=== PATIENT | female | born 1955 | race Caucasian/White ===

== ENCOUNTER 2024-11-23 12:42 | Emergency (ER) | payer MEDICARE, OTHER, SELFPAY ==
--- NOTE | ~2024-11-23 | XR_ITS ---
EXAMINATION: XR chest 2V Exam Date/Time: 11/23/2024 15:00 CDT HISTORY: sob Comparison: 04/27/2014. RESULT: Lines, tubes, and devices: None. Lungs and pleura: No lobar consolidation, pleural effusion, or pneumothorax. Minimal subsegmental r ight basilar airspace opacity in the posterior and lateral costophrenic sulci. Cardiomediastinal silhouette: Stable. Other: No acute osseous or upper abdominal finding. IMPRESSION: Subsegmental right basilar atelectasis/consolidation. Reviewed, dictated and finalized at location K.
--- OUTSIDE RECORDS SUMMARY | 2024-11-23 12:45 | XMS_ITS | Clinical Summary ---
Author Organization [facility] Address [address] [place] [id number] Care Team Providers Care Bobbin Inspector Name Role Phone Willem Mccray MD Primary Care Provider Unava ilable Social History Tobacco Use Types Packs/Day Years Used Date Smoking Tobacco: Never Assessed Comments Unknown Sex and Gender Information Value Date Recorded Sex Assigned at Not on file Legal Sex Female 7:18 PM CDT Gender Identity Not on file Sexual Orientation Not on file Plan of Treatment Health Maintenance Due Date Last Done Comments Colorectal Cancer Screening Colonoscopy (10 Years) 1957 Hepatitis C 1975 DTaP, Tdap and Td Vaccines ( 1 - Tdap) 02/28/1976 Mammogram Screening 1997 Zoster Vaccines (1 of 2) 2007 Dexa Scan (General) 2022 Pneumococcal Vaccine: 65+ Ye ars (1 of 1 - PCV) 2022 COVID-19 Vaccine ( - 2023-2 5 season) 2024 Influenza Adult (#1) 2024 RSV Immunization or 60+ Years (1 - 1-dose 75+ series) 02/28/2032 Meningococcal B Vaccine Aged Out No l onger eligible based on patient's age to complete this topic Meningococcal Vaccine Aged Out No brendon bill eligible based on patient's age to complete this topic RSV Immunizations Under 20 Months Aged Out No longer eligible based on patient's age to complete this topic Care Teams Bobbin Inspector Relationship Specialty Start Date End Date Willem Mccray MD PCP - General 01/17/15
--- OUTSIDE RECORDS SUMMARY | 2024-11-23 12:45 | XMS_ITS | Continuity of Care Document ---
Author Name [facility] Organization [facility] Care Team Providers Care Construction Foreman Name Role Phone [facility] Unavailable Unavailable Problems Combined list of problems from Department of Defense and Veterans Affairs facilities. It does not include entries that were removed or entered in error. Problem Status Onset Date Problem Type Date of Resolution Comments Source Tachycardia Active 5 Diagnosis [facility] Obesity Active 5 Diagnosis [facility]- C[facility] Screening for malignant neoplasm of colon done Active 5 Diagnosis 6130C[facility]Af- C-[facility] Hypertension Active 5 Diagnosis 6130[facility]Af- C-[facility] Osteoporosis Active 5 Diagnosis 6[facility]- C[facility] Well adult Active 5 Diagnosis 6130[facility]Af- C-[facility] Atypical chest pain Active Condition 6130C[facility]Af- C[facility] Atypical squamous cells of undetermined significance on cervical Papanicolaou smear Active Condition 6130C- Af- C-[facility] Degenerative joint disease of hand Active Condition [facility]- C[facility] Hyperlipidemia1 Active Condition Outs jackie Source Comment: goal ldl 130\ncont tlc and recheck soon [facility] Hypertensive disorder2 Active Condition Outside Source Comment: \nstable on current regimen of Zestoretic - will continue for now [facility] Low back pain Active Condition [facility] - C[facility] Menorrhagia Active Condition 6[facility]Af- C[facility] Multiple joint pain3 Active Condition Outside Source Comment: \nday - to - day aches and pains --- Naproxen works best --- told her to use in moderation with meds/HTN 6130C[facility]- C[facility] Osteoarthritis of knee Active Condition 6130C[facility]Af- C[facility] Osteopenia4 Active Condition Outside Source Comment: Instructed pt to continue getting 1200 mgs calcium QD, take Actonel once a week and get bone density scan done. Instructed pt to f/u next Mar 28 for annual WWE and will discuss possibly repeating bone density scan at that time. [facility] Osteoporosis5 Active Condition Outsid e Source Comment: \nto start bisphosphonate at recommendation of [employer] 6130C[facility]Af- C[facility] Vitamin D deficiency Active Condition 6[facility]Af- C-[facility] Medications Combined list of outpatient medications from Department of Defense and Veterans Affairs facilities.Medications provided include 1) outpatient medications from the last 15 months, and 2) patient-reported medications. Medication Details Route Status Patient Instructions Prescription Expires Prescription Number Last Dispense Date Ordering Provider Order Date Order Qty Source alendronate 35 mg oral tablet 1 tab(s), Oral, every week, # 13 tab(s), 3 total refill(s ), [facility], [facility]acy : [facility] Oral (given by mouth) Discont inued 08/02/2024 4 2023 13.0 6130C-A f-C[facility] [place] alendronate 35 mg oral tablet 1 tab(s), Oral, every week, # 13 tab(s), 3 total refill(s ), [facility], [facility] : [facility] Oral (given by mouth) Ordered 5 2023 13.0 6130C-A f-C-[facility] [place] alendronate 35 mg tablet See Instruct ions, # 12 EA, 2 total refill(s ), Acute Discont inued 08/28/2023 3 2023 12.0 Ambulat ory Pharmac y hydroCHLORO thiazide 25 mg oral tablet 1 tab(s), Oral, Daily, # 90 tab(s), 3 total refill(s ), [facility], Pharmacy : [facility] Oral (given by mouth) Discont inued 08/02/2024 4 2023 90.0 6130C-A f-C-[facility] [place] hydroCHLORO thiazide 25 mg tablet See Instruct ions, # 90 EA, 2 total refill(s ), Acute Discont inued 08/28/2023 3 2023 90.0 Ambulat ory Pharmac y hydrocortis one 1% ointment [28g] See dose instruct ions in comments , # 28 g, 1 total refill(s ), Acute Complet ed 12/26/2023 4 2023 28.0 Ambulat ory Pharmac y lisinopril 20 mg oral tablet 1 tab(s), Oral, Daily, # 90 tab(s), 3 total refill(s ), [facility], Pharmacy : [facility] Oral (given by mouth) Discont inued 08/02/2024 4 2023 90.0 6130C-A f-C-375 Th [facility] [place] lisinopril 20 mg tablet See Instruct ions, # 90 EA, 2 total refill(s ), Acute Discont inued 08/28/2023 3 2023 90.0 Ambulat ory Pharmac y lisinopril- hydroCHLORO thiazide 20mg-25mg oral tablet 1 tab(s), Oral, Daily, for blood pressure , # 90 tab(s), 3 total refill(s ), [facility], Pharmacy : [facility] Oral (given by mouth) Ordered 5 2023 90.0 6130C-A f-C-375 Th [facility] [place] lisinopril- hydroCHLORO thiazide 20mg-25mg oral tablet lisinopr il-hydro CHLOROth iazide 20mg-25m g oral tablet Start Date: 07/03/20 Stop Date: 08/28/23 Status: Disconti nued Repeat number: 1 Discont inued 08/28/20232023 No Facilit y Access simvastatin 20 mg oral tablet 1 tab(s), Oral, every evening, # 90 tab(s), 3 total refill(s ), [facility], Pharmacy : [facility] Oral (given by mouth) Discont inued 08/02/2024 4 2023 90.0 6130C[facility]A f[facility] [place] sim[facility]atin 20 mg oral tablet 1 tab(s), Oral, every morning, # 90 tab(s), 3 total refill(s ), [facility], Pharmacy : [facility] Oral (given by mouth) Ordered 5 2023 90.0 6130C-A f-C-375 [facility] simvastatin 20 mg oral tablet simvasta tin 20 mg oral tablet Start Date: 07/03/20 Stop Date: 08/28/23 Status: Complete d Repeat number: 1 Complet ed 08/28/20232023 No Facilit y Access simvastatin 20 mg tablet See Instruct ions, # 90 EA, 2 total refill(s ), Acute Discont inued 08/28/2023 3 2023 90.0 Ambulat ory Pharmac y Allergies, Adverse Reactions, Alerts Combined list of allergies from Department of Defense and Veterans Affairs facilities. It does not include entries that were removed or entered in error. Substance Category Reaction Severity Reaction type Status Date Reported Comments Source Mangos Food allergy Rash Moderate Active Ambulatory Pharmacy Immunizations Combined list of available immunizations from the Department of Defense and Veterans Affairs facilities. Immunization Series Date Given Administered By Site Reaction Lot Number CVX Code Drug Joint Cutter Machine Status Comments Source tetanus-dipht h toxoids (Td) adult/adol 2022 [facility] [id number] comple t ed Result Comment: Route: Intramusc ular(IM) Manufactu rer: Sanofi Pasteur (PMC) 6130C-A f-C-375 Th [facility] pneumococcal 20-valent conjugate vaccine 2022 [facility] [id number] comple t ed Result Comment: Route: Intramusc ular(IM) Manufactu rer: Pfizer, Inc (PFR) 6130C-A f-C-375 Th [facility] influenza, injectable, quadrivalent- pf 2020 KILEYSCHLORTT 150 comple t ed Result Comment: Unit: Unknown Manufactu rer: () 6130C-A f-C-375 Th [facility] [place] COVID Vaccine Pfizer 2020 KILEYSCHLORTT 208 comple t ed Result Comment: Unit: Unknown Manufactu rer: Pfizer Manufactu ring [place] (PFR) 6130C-A f-C-375 Th [facility] [place] COVID Vaccine Pfizer 2020 KILEYSCHLORTT 208 comple t ed Result Comment: Unit: Unknown Manufactu rer: Pfizer Manufactu ring [place] (PFR) 6130C-A f-C-375 Th [facility] [place] COVID Vaccine Pfizer 2020 KILEYSCHLORTT 208 comple t ed Result Comment: Unit: Unknown Manufactu rer: Pfizer Manufactu [facility] [place] (PFR) 6130C-A f-C-375 Th [facility] [place] zoster vaccine, inactivated 2020 zzLef t Arm [id number] 187 GlaxoSmithKli ne complet ed zoster vaccine, inactivat ed 08/28/20 Given Ambulat ory Pharmac y zoster vaccine, inactivated 2019 zzLef t Arm [id number] 187 GlaxoSmithKli ne complet ed zoster vaccine, inactivat ed 06/10/20 Given Ambulat ory Pharmac y Influenza, inj, MDCK, quadrivalent- pf 2019 zzLef t Arm [id number] 171 Seqirus complet ed Influenza , inj, MDCK, quadrival ent-pf 06/10/20 Given Ambulat ory Pharmac y influenza, injectable, quadrivalent- pf 2018 KILEYSCHLORTT 150 comple t ed Result Comment: Unit: Unknown Manufactu rer: () 6130C-A f-C-375 Th [facility] [place] influenza, injectable, quadrivalent- pf 2017 KILEYSCHLORTT 150 comple t ed Result Comment: Route: Unknown Manufactu rer: OT (SKB) 6130C-A f-C-375 Th [facility] [place] Influenza, inj, MDCK, quadrivalent- pf 2016 KILEYSCHLORTT 171 comple t ed Result Comment: Unit: Unknown Manufactu rer: () 6130C-A f-C-375 Th [facility] [place] Influenza, inj, MDCK, quadrivalent- pf 2015 KILEYSCHLORTT 171 comple t ed Result Comment: Unit: Unknown Manufactu rer: () 6130C-A f-C-375 Th [facility] [place] influenza, seasonal, injectable-pf 2014 KILEYSCHLORTT 140 comple t ed Result Comment: Route: Unknown Manufactu rer: OTH (CSL) 6130C-A f-C-375 Th [facility] [place] influenza, seasonal, injectable-pf 2013 KILEYSCHLORTT 140 comple t ed Result Comment: Unit: Unknown Manufactu rer: () 6130C-A f-C-375 Th [facility] [place] influenza, seasonal, injectable 2011 zzLef t Arm [id number] 141 sanofi pasteur complet ed influenza , seasonal, injectabl e 06/22/12 Given Ambulat ory Pharmac y influenza, seasonal, injectable 2010 zzRig ht Arm [id number] 141 sanofi pasteur complet ed influenza , seasonal, injectabl e 06/13/11 Given Ambulat ory Pharmac y tetanus, diphtheria, acellular pertu is 2010 zzLef t Arm [id number] 115 GlaxoSmithKli ne complet ed tetanus, diphtheri a, acellular pertussis 06/13/11 Given Ambulat ory Pharmac y Novel influenza-H1N 1-09, injectable 2009 KILEYSCHLORTT 127 comple t ed Result Comment: Unit: Unknown Manufactu rer: Sanofi Pasteur Inc. ([facility]) 6130C-A f-C-375 Th [facility] [place] tetanus-dipht h toxoids (Td) adult/adol 2000 zzLef t Arm [id number] 09 sanofi pasteur complet ed tetanus-d iphth toxoids (Td) adult/ado l 11/09/00 Given Ambulat ory Pharmac y Results Combined list of recent chemistry, hematology and other laboratory results from Department of Defense and Veterans Affairs, ranging from 15 months to all on record, depending upon the facility. Order Name Results Value Reference Range Date Interpretation Specimen Comments Source Chemistry eGFR CKD EPI 81 mL/min /1.73_ m2 11/04 Interpretive Data: Estimated Glomerular Filtration Rate (eGFR) calculated using the 2020 Chronic Kidney Disease-Epid emiology (CKD-EPI) Collaboratio n creatinine equation; units of measure are mL/min/1.73 m2. Results are only valid for adults (>=18 years) whose serum creatinine is in steady state. eGFR calculations are not valid for patients with acute kidney injury and for patients on dialysis. Creatinine-b ased estimates of kidney function may also be inaccurate in patients with reduced creatinine generation due to decreased muscle mass (e.g., malnutrition , severe hypoalbumine shadia, sarcopenia, chronic neuromuscula r disease, amputations, severe heart failure or liver disease) and in patients with increased creatinine generation due to increased muscle mass (e.g., muscle builders, anabolic steroids) or increased dietary intake. CKD is diagnosed based on abnormalitie s of kidney structure or function, present for >3 months, with implications for health and disease. CKD is classified and staged based on cause, eGFR and albuminuria (quantified as urine albumin to creatinine ratio). An eGFR >60 mL/min/1.73 m2 in the absence of increased urine albumin excretion or structural abnormalitie s does not CKD. eGFR provides only an estimate of measured GFR within +/- 30% for most patients. As mentioned, nutritional status and muscle mass, among many factors, may lead to inaccuracy in the estimate. Consider ordering the creatinine-c ystatin C panel if better accuracy is needed for clinical decision-hamilton ing. eGFR (mL/min/1.73 m2) CKD stage Interpretati on Normal 60-89 Mild decrease 45-59 Mild to moderate decrease 30-44 Moderate to severe decrease 15-29 Severe decrease <15 Kidney failure 0055A-3 [facility] [place] Chemistry Alk Phos 68 U/L 40 - 150 11/04 N 0055A-3 [facility] [place] Chemistry Glucose Lvl 92 mg/dL 74 - 99 11/04 N 0055A-3 [facility] [place] Chemistry Potassium Lvl 4.0 mmol/L 3.5 - 5.1 11/04 N 0055A-3 [facility] [place] Chemistry Sodium 140 mmol/L 136 - 145 11/04 N 0055A-3 [facility] [place] Chemistry Albumin 3.90 g/dL 3.50 - 5.20 11/04 N 0055A-3 [facility] [place] Chemistry Protein Total 7.6 g/dL 6.4 - 8.3 11/04 N -[address] [place] [address] Chemistry Creatinine Level 0.80 mg/dL 0.57 - 1.11 11/04 N -[address] [place] [address] Chemistry AGAP 8.00 0.00 - 15.00 11/04 N -[address] [place] [address] Chemistry Calcium 9.8 mg/dL 8.4 - 10.2 11/04 N -[address] [place] [address] Chemistry Chloride 105 mmol/L 98 - 107 11/04 N -[address] [place] [address] Chemistry CO2 27 mmol/L 22 - 29 11/04 N -[address] [place] [address] Chemistry BUN 24 mg/dL 7 - 20 11/04 H -[address] [place] [address] Chemistry BUN/Creat Ratio 30 mg/dL 12 - 20 11/04 H -[address] [place] [address] Chemistry Bilirubin Total 0.5 mg/dL 0.2 - 1.2 11/04 N -[address] [place] [address] Chemistry AST 14 U/L 5 - 34 11/04 N -[address] [place] [address] Chemistry ALT 14 U/L 5 - 55 11/04 N -[address] [place] [address] Chemistry Chol/HDL 4 mg/dL 11/04 005-[address] [place] [address] Chemistry Triglycerid es 92 mg/dL 7 - 149 11/04 N Interpretive Data: AGES 0-9: Desirable: < 75 mg/dL Borderline High: 75-99 mg/dL High: >/= 100 mg/dL AGES 10-19: Desirable: < 90 mg/dL Borderline High: 90-129 mg/dL High: >/= 130 mg/dL ADULTS: Desirable: < 150 mg/dL Borderline High: 150-199 mg/dL High: >/= 240 mg/dL Very High: >/= 500 mg/dL [address] [place] [address] Chemistry LDL 111 mg/dL 100 - 130 11/04 N Interpretive Data: AGES 0-19: Desirable: < 110 mg/dL Borderline High: 110-129 mg/dL High: >/= 130 mg/dL ADULTS: Desirable: <100 mg/dL Near/above optimal: 100-130 mg/dL Borderline High: 131-159 mg/dL High: 160-189 mg/dL Very High: 190 mg/dL [address] [place] [address] Chemistry LDL/HDL 2 11/[address] [place] [address] Chemistry HDL Cholesterol 48 mg/dL 40 - 59 11/04 N Interpretive Data: HDL (HIGH DENSITY LIPOPROTEIN) : ADULTS: Low: < 40 mg/dL High: >/= 60 mg/dL AGES 0 -19: Low: < 40 mg/dL Borderline Low: 40 - 45 mg/dL Acceptable: > 45 mg/dL [address] [place] [address] Chemistry Cholesterol Total 171 mg/dL 11/04 N Interpretive Data: According to the [place] [employer]: AGES 0-19: Desirable: < 170 mg/dL Borderline High: 170-199 mg/dL High Blood Cholesterol: >/= 200 mg/dL ADULTS: Desirable < 200 mg/dL Borderline High: 200-239 mg/dL High Blood Cholesterol: >/= 240 mg/dL [address] [place] [address] Chemistry Hemoglobin A1c 5.5 % 4.0 - 5.6 11/04 N Interpretive Data: Normal: 4.0 - 5.6% Increased Risk: 5.7 - 6.4% Diabetic Range: 6.5% For patients without diabetes, the normal range for the hemoglobin A1c test is between 4% and 5.6%. Hemoglobin A1c levels between 5.7% and 6.4% indicate increased risk of diabetes, and levels of 6.5% or higher indicate diabetes. Because studies have repeatedly shown that ekj-nr-zncua ol diabetes results in complication s from the disease, the goal for people with diabetes is a hemoglobin A1c less than 7%. The higher the hemoglobin A1c, the higher the risks of developing complication s related to diabetes. If confirmation is needed, consider recalling the patient and ordering Hemoglobin Electrophore sis. [address] [place] [address] Chemistry eAvg Glucose 111 mg/dL 11/[address] [place] [address] Chemistry Ur Microalbumi n <5 mg/L 11/04 N Interpretive Data: To minimize intra-indivi dual variation, analysis of three random urine samples collected over the course of a week has also been recommended. Result Comment: Below detectable range of Analyzer [address] [place] [address] Chemistry LDL/HDL 2 08/[address] [place] [address] Chemistry Triglycerid es 134 mg/dL 7 - 149 08/22 N Interpretive Data: AGES 0-9: Desirable: < 75 mg/dL Borderline High: 75-99 mg/dL High: >/= 100 mg/dL AGES 10-19: Desirable: < 90 mg/dL Borderline High: 90-129 mg/dL High: >/= 130 mg/dL ADULTS: Desirable: < 150 mg/dL Borderline High: 150-199 mg/dL High: >/= 240 mg/dL Very High: >/= 500 mg/dL [address] [place] [address] Chemistry Cholesterol Total 203 mg/dL 08/22 H Interpretive Data: According to the [place] [employer]: AGES 0-19: Desirable: < 170 mg/dL Borderline High: 170-199 mg/dL High Blood Cholesterol: >/= 200 mg/dL ADULTS: Desirable < 200 mg/dL Borderline High: 200-239 mg/dL High Blood Cholesterol: >/= 240 mg/dL [address] [place] [address] Chemistry HDL Cholesterol 56 mg/dL 40 - 59 08/22 N Interpretive Data: HDL (HIGH DENSITY LIPOPROTEIN) : ADULTS: Low: < 40 mg/dL High: >/= 60 mg/dL AGES 0 -19: Low: < 40 mg/dL Borderline Low: 40 - 45 mg/dL Acceptable: > 45 mg/dL [address] [place] [address] Chemistry LDL 124 mg/dL 100 - 130 08/22 N Interpretive Data: AGES 0-19: Desirable: < 110 mg/dL Borderline High: 110-129 mg/dL High: >/= 130 mg/dL ADULTS: Desirable: <100 mg/dL Near/above optimal: 100-130 mg/dL Borderline High: 131-159 mg/dL High: 160-189 mg/dL Very High: 190 mg/dL [address] [place] [address] Chemistry Chol/HDL 4 mg/dL 08/[address] [place] [address] Hematology Hemoglobin 13.5 g/dL 11.0 - 15.0 08/[address] [place] [address] Hematocrit 41 % 34 - 46 08/[address] [place] [address] MCH 28 pg 28 - 33 08/[address] [place] [address] Platelets 233.0 x10^3/ mcL 150.0 - 450.0103 08/[address] [place] [address] MPV 9.7 fL 7.4 - 10.4 08/[address] [place] [address] MCV 86 fL 80 - 97 08/[address] [place] [address] MCHC 33.1 g/dL 33.0 - 36.5 08/[address] [place] [address] RDW 12.9 % 11.0 - 14.9 08/[address] [place] [address] RBC 4.8 x10^6/ mcL 3.6 - 5.0106 08/[address] [place] [address] WBC 6.6 x10^3/ mcL 4.0 - 11.0103 08/[address] [place] [address] Monocyte % Auto 6 % 1 - 12 08/[address] [place] [address] Ingham Absolute 0.4 x10^3/ mcL 0.2 - 0.8103 08/[address] [place] [address] Neutrophil % Auto 62.5 % 46.0 - 77.0 08/[address] [place] [address] Neutro Absolute 4.1 x10^3/ mcL 2.0 - 7.0103 08/[address] [place] [address] Basophil % Auto 0.5 % 0.0 - 2.5 08/[address] [place] [address] Baso Absolute 0.0 x10^3/ mcL 0.0 - 0.1103 08/[address] [place] [address] Eos Absolute 0.1 x10^3/ mcL 0.0 - 0.7103 08/[address] [place] [address] Hematology Lymph Absolute 1.9 x10^3/ mcL 1.2 - 4.0103 08/[address] [place] [address] Hematology Lymphocyte % Auto 29.4 % 20.0 - 40.0 08/[address] [place] [address] Hematology Eosinophil % Auto 2 % 0 - 5 08/[address] [place] [address] Chemistry eGFR CKD EPI 71 mL/min /1.73_ m2 08/22 Interpretive Data: Estimated Glomerular Filtration Rate (eGFR) calculated using the 2020 Chronic Kidney Disease-Epid emiology (CKD-EPI) Collaboratio n creatinine equation; units of measure are mL/min/1.73 m2. Results are only valid for adults (>=18 years) whose serum creatinine is in steady state. eGFR calculations are not valid for patients with acute kidney injury and for patients on dialysis. Creatinine-b ased estimates of kidney function may also be inaccurate in patients with reduced creatinine generation due to decreased muscle mass (e.g., malnutrition , severe hypoalbumine shadia, sarcopenia, chronic neuromuscula r disease, amputations, severe heart failure or liver disease) and in patients with increased creatinine generation due to increased muscle mass (e.g., muscle builders, anabolic steroids) or increased dietary intake. CKD is diagnosed based on abnormalitie s of kidney structure or function, present for >3 months, with implications for health and disease. CKD is classified and staged based on cause, eGFR and albuminuria (quantified as urine albumin to creatinine ratio). An eGFR >60 mL/min/1.73 m2 in the absence of increased urine albumin excretion or structural abnormalitie s does not CKD. eGFR provides only an estimate of measured GFR within +/- 30% for most patients. As mentioned, nutritional status and muscle mass, among many factors, may lead to inaccuracy in the estimate. Consider ordering the creatinine-c ystatin C panel if better accuracy is needed for clinical decision-ham[place] ing. eGFR (mL/min/1.73 m2) CKD stage Interpretati on Normal 60-89 Mild decrease 45-59 Mild to moderate decrease 30-44 Moderate to severe decrease 15-29 Severe decrease <15 Kidney failure [address] [place] [address] Chemistry Glucose Lvl 96 mg/dL 74 - 99 08/[address] [place] [address] Chemistry Potassium Lvl 3.9 mmol/L 3.5 - 5.1 08/[address] [place] [address] Chemistry Sodium 140 mmol/L 136 - 145 08/[address] [place] [address] Chemistry Protein Total 7.5 g/dL 6.4 - 8.3 08/[address] [place] [address] Chemistry Creatinine Level 0.90 mg/dL 0.57 - 1.11 08/[address] [place] [address] Chemistry BUN/Creat Ratio 19 mg/dL 12 - 20 08/[address] [place] [address] Chemistry Calcium 10.1 mg/dL 8.4 - 10.2 08/[address] [place] [address] Chemistry Chloride 103 mmol/L 98 - 107 08/[address] [place] [address] Chemistry CO2 27 mmol/L 22 - 29 08/[address] [place] [address] Chemistry BUN 17 mg/dL 7 - 20 08/[address] [place] [address] Chemistry Alk Phos 72 U/L 40 - 150 08/[address] [place] [address] Chemistry ALT 19 U/L 5 - 55 08/[address] [place] [address] Chemistry AST 18 U/L 5 - 34 08/[address] [place] [address] Chemistry Bilirubin Total 0.5 mg/dL 0.2 - 1.2 08/[address] [place] [address] Chemistry Albumin 3.90 g/dL 3.50 - 5.20 08/[address] [place] [address] Chemistry AGAP 10.00 0.00 - 15.00 08/[address] [place] [address] Chemistry eAvg Glucose 111 mg/dL 08/[address] [place] [address] Chemistry Hemoglobin A1c 5.5 % 4.0 - 5.6 08/22 N Interpretive Data: Normal: 4.0 - 5.6% Increased Risk: 5.7 - 6.4% Diabetic Range: 6.5% For patients without diabetes, the normal range for the hemoglobin A1c test is between 4% and 5.6%. Hemoglobin A1c levels between 5.7% and 6.4% indicate increased risk of diabetes, and levels of 6.5% or higher indicate diabetes. Because studies have repeatedly shown that dot-jc-znjst ol diabetes results in complication s from the disease, the goal for people with diabetes is a hemoglobin A1c less than 7%. The higher the hemoglobin A1c, the higher the risks of developing complication s related to diabetes. If confirmation is needed, consider recalling the patient and ordering Hemoglobin Electrophore sis. 5A-[address] [place] [address] Chemistry Ur Microalbumi n <5 mg/L 08/22 N Result Comment: Below detectable range of analyzer. Interpretive Data: To minimize intra-indivi dual variation, analysis of three random urine samples collected over the course of a week has also been recommended. -[address] [place] [address] Vital Signs Combined list of inpatient and outpatient Vital Signs from Department of Defense and Veterans Affairs, ranging from 12 months to all on record, depending upon the facility. Vital Sign Value Date Comments Source Systolic Blood Pressure 125 mm[Hg] 11/05/2024 18:03:00 [id number] [place] [address]-[place] Diastolic Blood Pressure 73 mm[Hg] 11/05/2024 18:03:00 [id number] Mean Arterial Pressure, Calc 90 mm[Hg] 11/05/2024 18:03:00 [id number]-Ob-I3 [address] [place] [address]-[place] Respiratory Rate 16 br/min 11/05/2024 18:03:00 5913H-Zx-R-[facility] Temperature Tympanic 36.8 Alyssa 11/05/2024 18:03:00 5620T-An-E-375 [facility] Blood Pressure Manual Automatic 11/05/2024 18:03:00 0858T-Gl-Z-375 [facility] BP Site Left arm 11/05/2024 18:03:00 [employer] -Af-C-[facility] Peripheral Pulse Rate 102 bpm 11/05/2024 18:03:00 7959O-Qn-K-[facility] Peripheral Pulse Rate 95 bpm 11/05/2024 18:40:00 9809G-Ck-G-[facility] Respiratory Rate 17 br/min 08/02/2024 20:19:00 8269C-Yi-I-[facility] BP Site Left arm 08/02/2024 20:19:00 6130C -Af-C-[facility] Systolic Blood Pressure 137 mm[Hg] 08/02/2024 20:19:00 5037C-Xy-E-[facility] Diastolic Blood Pressure 80 mm[Hg] 08/02/2024 20:19:00 4641R-Ad-N-[facility] Peripheral Pulse Rate 109 bpm 08/02/2024 20:19:00 3056B-Dm-L-[facility] Mean Arterial Pressure, Calc 99 mm[Hg] 08/02/2024 20:19:00 2931V-Fd-J-3 [facility] Blood Pressure Manual Automatic 08/02/2024 20:19:00 2151G-Ap-H-[facility] Peripheral Pulse Rate 93 bpm 08/02/2024 20:40:00 1829S-Ic-P-[facility] Respiratory Rate 16 br/min 08/28/2023 13:58:00 3452I-Jt-T-[facility] BP Site Left arm 08/28/2023 13:58:00 6130C -Af-C-[facility] Blood Pressure Manual Manual 08/28/2023 13:58:00 1901R-By-Z-[facility] Systolic Blood Pressure 138 mm[Hg] 08/28/2023 13:58:00 1407X-Rx-Z-[facility] Diastolic Blood Pressure 64 mm[Hg] 08/28/2023 13:58:00 9525J-Ye-G-[facility] Peripheral Pulse Rate 92 bpm 08/28/2023 13:58:00 2512A-Ra-Y-[facility] Mean Arterial Pressure, Calc 89 mm[Hg] 08/28/2023 13:58:00 2904B-Ja-M-3 [facility] Encounters Combined list of: 1) Encounters from [facility] Affairs facilities going backup to the last 18 months, not all [facility] inpatient encounters are included; 2) Encounters from the Department of Defense facilities going backup to 280 months. Location Location Details Encounter Type Encounter Number Reason For Visit Attending Provider ADM Date DC Date Status Disposition Source [facility] [id number] SHAKIRA RESTREPO 10/24 Discharge Disposition: Home or Self Care - [facility] [place] 6130C-Af- C-[facility] Between Visit [id number] 10/28 Discharge Disposition: Home or Self Care 30C-A f-C-375 [facility] [place] [facility] [id number] RAHAT No 11/04 Discharge Disposition: Home or Self Care - [facility] [place] 30C-Af- C-375 [facility] Between Visit [id number] 11/05 Discharge Disposition: Home or Self Care 30C-A f-C- Th [facility] [place] 30C-Af- C-[facility] [id number] [facility] er for screeni ng for maligna nt neoplas m of colon,E ssentia l (primar y) hyperte nsion,A ge-rela hu osteopo rosis without current patholo gical fractur e,Encou nter for general adult medical examina tion without abnorma l finding s,Obesi ty, unspeci fied,Ta chycard ia, unspeci fied JACOBTHOMP SON 11/05 Discharge Disposition: Home or Self Care 61C-A f-C-375 [facility] [place] Procedures Combined list of: 1) Procedures from Department of Veterans Affairs facilities going back up to thelast 18 months, not all [place] non-surgical procedures are included; 2) All procedures from the Department of Defense facilities. Procedure Procedure Type Code Date Perfomer Comments Sourc e Destruction (eg, laser surgery, electrosurgery, cryosurgery, chemosurgery, surgical curettement), all benign or premalignant lesions (eg, actinic keratoses) other than skin tags or cutaneous vascular proliferative lesions; first lesion Destruction (eg, laser surgery, electrosurgery, cryosurgery, chemosurgery, surgical curettement), all benign or premalignant lesions (eg, actinic keratoses) other than skin tags or cutaneous vascular proliferative lesions; first lesion [id number] 6130C-Af-C- 375 [facility] Cytopathology, slides, cervical or vaginal, definitive hormonal evaluation (eg, maturation index, karyopyknotic index, estrogenic index) (List separately in addition to code(s) for other technical and interpretation services) Cytopathology, slides, cervical or vaginal, definitive hormonal evaluation (eg, maturation index, karyopyknotic index, estrogenic index) (List separately in addition to code(s) for other technical and interpretation services) [id number] 6130C-Af-C- 375 [facility] Colorectal cancer screening; colonoscopy on individual not meeting criteria for Outside Source Comment: Scope 8641 6130C-Af-C- 375 [facility] Destruction (eg, laser surgery, electrosurgery, cryosurgery, chemosurgery, surgical curettement), all benign or premalignant lesions (eg, actinic keratoses) other than skin tags or cutaneous vascular proliferative lesions; second through 14 lesions, each Destruction (eg, laser surgery, electrosurgery, cryosurgery, chemosurgery, surgical curettement), all benign or premalignant lesions (eg, actinic keratoses) other than skin tags or cutaneous vascular proliferative lesions; second through 14 lesions, each 14611 6130C-Af-C- 375 [facility] Endometrial sampling (biopsy) with or without endocervical sampling (biopsy), without cervical dilation, any method (separate procedure) Endometrial sampling (biopsy) with or without endocervical sampling (biopsy), without cervical dilation, any method (separate procedure) [id number] 6130C-A f-C- 375 [facility] Tangential biopsy of skin (eg, shave, scoop, saucerize, curette); single lesion Tangential biopsy of skin (eg, shave, scoop, saucerize, curette); single lesion 65753 6130C-Af-C- [facility] Shaving of epidermal or dermal lesion, single lesion, scalp, neck, hands, feet, genitalia; lesion diameter 0.6 to 1.0 cm Shaving of epidermal or dermal lesion, single lesion, scalp, neck, hands, feet, genitalia; lesion diameter 0.6 to 1.0 cm [id number] 6130C-Af-C- [facility] Screening Papanicolaou smear (Pap), cervical/vaginal, up to three smears, by noreen 6130C-Af-C- [facility] Dilation of cervical canal, instrumental (separate procedure) Dilation of cervical canal, instrumental (separate procedure) [id number] 6130C-A f-C- [facility] Social History Combined list of available smoking, tobacco, and other social history from Department of Defense and Veterans Affairs facilities. Social History Type Response Date Comment Sour e Sex Representation Female (finding) 06/22/2021 Unknown Organization Tobacco Never-cigarette user Cigarette use:. Never-other tobacco user (not cigarettes) Other Tobacco use:. Ambulatory Pharmacy Sexual Orientation Ambula tory Pharmacy Gender identity Ambulator y Pharmacy Assessment and Plan Combined list of future care activities from Department of Defense and Veterans Affairs facilities (e.g., assessment and plan notes, appointments, orders, and referrals). Additional future care activities may be listed in the Plan of Care section. Result Assessment and Plan Date Source Assessment and Plan Extracted from:Title : Annual Well/Chronic Meds Author: BALDO LUQUE DO Date: 11/05/24 1. [facility] adult Preventative Medicine / HCM visit with no emergent concerns. ----- VACCINES: - Advised annual flu vaccine - Advised COVID-19 vaccine ----- - Cervical Cancer Screening: U TD [X] Final Pap smear d ue in June 2025, if benign ( never had a typical pap smear, does not necessarily need pap-smear, discussed with patient) - Breast C ancer Screening: UTD [X] Age 50-75; BIRADS 2 2024 - L frankie Cancer Screening: N /A [_] Age 50-80 a nd 20 pack-yr smoking hx p er USPSTF - C olon Cancer Screening: D UE [X] Age > 4 5 per USPSTF Referral placed: [age]-year-old woman who is due for screening colonoscopy. No history of abnormal colonoscopies. Please complete screening colonoscopy, and treat as needed. ----- BONE DENSITY: UTD [X] Age > 6 5 , next due i n 1 year ----- METABOLIC: - L ipid screening: U TD - D M screening: UTD ----- SUBSTANCE USE: - T obacco use: D enies - Alcohol use: Denies - Illicit drug use: Denies ----- FOLLOW UP: Annually 2. O steoporosis Chronic, Treated History of Osteoporosis for 3 years on alendronate Plan: Repeat CT bone density scan in 1 year Continue Alendronate therapuy 3. S creening for malignant neoplasm of colon done Referral placed for colonoscopy screen Ordered: Referral Request 2.0 - [facility] 4. H ypertension Chronic Controlled Less than 140/90 per JNC8 Plan: Refill chronic medication 5. O besity Chronic, Uncontrolled Ht:175.3 cm Wt: 98.5kg BMI: 32.05 Plan: Nutrition Referral Ordered: Referral Request 2.0 - [facility] 6. T achycardia Chronic, Asymptomatic No history of ASCVD. On statin. Denies CP and Palpitations. Repeat HR 95 bpm Plan: CTM Baldo Luque DO, , [facility] Resident Provider Addendum by CLARKE RIVAS MD on November 05, 2024 17:22:57 CDT I certify that I was present for case discussion in the Family Medicine preceptor room at the time of this encounter. I have reviewed the note and agree with the findings, assessment, and plan except as I have documented below. Follow up as listed. All labs/imaging/consults to be followed by the ordering provider. Clarke Rivas MD, [facility], [facility], Family Medicine and Obstetrics Faculty Physician [facility], HCOS/SGGF O [facility] Medical [facility] [place] Extracted from:Title: FM: BP Author: SHAKIRA SAUCEDO MD Date: 08/02/24 1. H ypertensive disorder C hronic, c ontrolled. Pt with BP within g oal range per J NC-8 guidelines w ith goal of < 140/90. No medication side effects or concerns of non-adherence. Recommendations: - M edication Change(s): T ransition to combo pill per pharmacy availability; same dosage?lisinopril 20, HCTZ 25 - Discussed lifestyle modifications as listed below - Maintenance Labs: RFP, ACR, A1C, Lipid Panel - R ecommended continued home B P m onitoring and validating monitor - Follow up in 1 month- Patient agrees with plan Ordered: lisinopril-hydroCHLOROthiazide(fiordaliza nopril-hydroCHLOROthiazide 20mg-25mg oral tablet), 1 tab(s), Oral, Daily, for blood pressure, # 90 tab(s), 3 total refill(s), Maintenance, 1 tab(s) Oral Daily,Instr:for blood pressure, Pharmacy: [facility] [Federal Rx: #90 last filled 08/02/24] Basic Metabolic Panel Hemoglobin A1c Lipid Panel Microalbumin Level, Urine MG Mammo Ilya Screening Bilateral 2. W ell adult O rdered labs for annual visit due in August -Referred to GI for colonoscopy/family medicine Dr. Rivas Mammography ordered -Return to clinic for in person laboratory r evromaw, and annual physical Refilled alendronate Ordered: Referral Request 2.0 - [facility] 3. H yperlipidemia C hronic, stable -Simvastatin 10 refilled -Lipid panel ordered Orders: alendronate(alendronate 35 mg oral tablet), 1 tab(s), Oral, every week, # 13 tab(s), 3 total refill(s), Maintenance, 1 tab(s) Oral every week, Pharmacy: [facility] [Not filled] simvastatin(simvastatin 20 mg oral tablet), 1 tab(s), Oral, every morning, # 90 tab(s), 3 total refill(s), Maintenance, 1 tab(s) Oral every morning, Pharmacy: [facility] [Not filled] Capt Shakira Saucedo MD Rn Rehabilitation P GY-3 [facility]/ [facility] [place], [place] Staffed By: Darek the above note has been dictated partially or in totality with the assistance of [employer] dictation software. While it was proofread for errors, there may still be grammatical and dictation errors. Addendum by SUKHJINDER HOPE DO on August 06, 2024 10:58:22 SENIOR ANALYST I certify that I was present for case discussion in the Family Medicine preceptor room at the time of this encounter. I have reviewed the note and agree with the findings, assessment, and plan except as I have documented below. Follow up as listed. All labs/imaging/consults to be followed by the ordering provider. DO Faraz [facility] Medicine-Obstetrics Physician [facility] 375[facility]OS[facility]SGGF [place] Extracted from:Title: Ambulatory Patient Education Author: SHAKIRA SAUCEDO MD Date: 08/02/24 Forms Blood Pressure Record Sheet To take your blood pressure, you will need a blood pressure machine. You may be prescribed one, or you can buy a blood pressure machine (blood pressure monitor) at your clinic, drug store, or online. When choosing one, look for these features: An automatic monitor that has an arm cuff. A cuff that wraps snugly, but not too tightly, around your upper arm. You should be able to fit only one finger between your arm and the cuff. A device that stores blood pressure reading results. Do not choose a monitor that measures your blood pressure from your wrist or finger. Follow your health care provider's instructions for how to take your blood pressure. To use this form: Get one reading in the morning (a.m.) before you take any medicines. Get one reading in the evening (p.m.) before supper. Take at least two readings with each blood pressure check. This makes sure the results are correct. Wait 1 2 minutes between measurements. Write down the results in the spaces on this form. Repeat this once a week, or as told by your health care provider. Make a follow-up appointment with your health care provider to discuss the results. Blood pressure log Date: a.m. (1st reading) (2nd reading) p.m. (1st reading) (2nd reading) Date: a.m. (1st reading) (2nd reading) p.m. (1st reading) (2nd reading) Date: a.m. (1st reading) (2nd reading) p.m. (1st reading) (2nd reading) Date: a.m. (1st reading) (2nd reading) p.m. (1st reading) (2nd reading) Date: a.m. (1st reading) (2nd reading) p.m. (1st reading) (2nd reading) This information is not intended to replace advice given to you by your health care provider. Make sure you discuss any questions you have with your health care provider. Document Revised: 04/21/2022 Document Reviewed: 04/21/2022 [employer] Patient Education 2023 [employer] Preventive Health Heart Disease Prevention Heart disease is the leading cause of in the world. Coronary artery disease is the most common cause of heart disease. This condition results when cholesterol and other substances (plaque) build up inside the quiros of the blood vessels that supply your heart muscle (arteries). This buildup in arteries is called atherosclerosis. You can take actions to lower your risk of heart disease. How can heart disease affect me? Heart disease can cause many unpleasant symptoms and complications, such as: Chest pain (angina). Reduced or blocked blood flow to your heart. This can cause: Irregular heartbeats (arrhythmias). Heart attack. Heart failure. What can increase my risk? The following factors may make you more likely to develop this condition: High blood pressure (hypertension). High cholesterol. A diet high in saturated fats or trans fats. Obesity. Diabetes. Having a family history of heart disease. Certain lifestyle factors, including: Smoking. Lack of physical activity. Drinking too much alcohol. What actions can I take to prevent heart disease? Nutrition Follow a heart-healthy eating plan as told by your health care provider. Examples include the DASH eating plan. DASH stands for Dietary Approaches to Stop Hypertension. Generally, it is recommended that you: Eat less salt (sodium). Ask your health care provider how much sodium is safe for you. Most people should have less than 2,300 mg each day. Limit unhealthy fats, such as saturated and trans fats, in your diet. You can do this by eating low-fat dairy products, eating less red meat, and avoiding processed foods. Eat healthy fats (omega-3 fatty acids). These are found in fish, such as mackerel or salmon. Eat more fruits and vegetables. You should try to fill one-half of your plate with fruits and vegetables at each meal. Eat more whole grains. Avoid foods and drinks that have added sugars. Try to limit how much added sugar you have to: Less than 25 grams a day for women. Less than 36 grams a day for men. Lifestyle Get regular exercise. This is one of the most important things you can do for your health. Generally, it is recommended that you: Exercise for at least 30 minutes on most days of the week (150 minutes each week). This should be exercise that causes your heart to beat faster (aerobic exercise). Add strength exercises on at least 2 days each week. Do not use any products that contain nicotine or tobacco. These products include cigarettes, chewing tobacco, and vaping devices, such as e-cigarettes. These can damage your heart and blood vessels. If you need help quitting, ask your health care provider. Alcohol use Do not drink alcohol if: Your health care provider tells you not to drink. You are , may be , or are planning to become . If you drink alcohol: Limit how much you have to: 0 1 drink a day for women. 0 2 drinks a day for men. Know how much alcohol is in your drink. In the [place] one drink equals one 12 oz bottle of beer (355 mL), one 5 oz glass of wine (148 mL), or one 1 oz glass of hard liquor (44 mL). Medicines Take juut-vml-yccyeov and prescription medicines only as told by your health care provider. Work with your health care provider to find out whether it is safe and beneficial for you to take aspirin daily. Make sure that you understand how much to take and what form to take. Depending on your risk factors, your health care provider may prescribe medicines to lower your risk of heart disease or to control related conditions. You may take medicine to: Lower cholesterol. Control blood pressure. Control diabetes. General information Keep your blood pressure under control, as recommended by your health care provider. For most healthy people, the upper number of their blood pressure (systolic) should be no higher than 120, and the lower number (diastolic) no higher than 80. Treatment may be needed if your blood pressure is higher than 130/80. Have your blood pressure checked at least every 2 years. Your health care provider may check your blood pressure more often if you have high blood pressure. After age 20, have your cholesterol checked every 4 6 years. If you have risk factors for heart disease, you may need to have it checked more often. Treatment may be needed if your cholesterol is high. Have your body mass index (BMI) checked every year. Your health care provider can calculate your BMI from your height and weight. Check your waist circumference. It should be: No more than 35 inches (89 cm) for women who are not . No more than 40 inches (102 cm) for men. Work with your health care provider to lose weight, if needed, or to maintain a healthy weight. Where to find more information: Centers for Disease Control and Prevention: www.cdc.gov/heartdisease [place] [employer]: www.heart.org Summary Heart disease is the leading cause of in the world. Heart disease can cause chest pain, abnormal heart rhythms, heart attack, and heart failure. Some of the risk factors for heart disease include high blood pressure, high cholesterol, and smoking. You can take actions to lower your chances of developing heart disease. Work with your health care provider to reduce your risk by following a heart-healthy diet, being physically active, and controlling your weight, blood pressure, and cholesterol level. This information is not intended to replace advice given to you by your health care provider. Make sure you discuss any questions you have with your health care provider. Document Revised: 04/06/2022 Document Reviewed: 04/06/2022 [employer] Patient Education 2023 [employer] Procedures How to Take Your Blood Pressure Blood pressure is a measurement of how strongly your blood is pressing against the quiros of your arteries. Arteries are blood vessels that carry blood from your heart throughout your body. Your health care provider takes your blood pressure at each office visit. You can also take your own blood pressure at home with a blood pressure monitor. You may need to take your own blood pressure to: Confirm a diagnosis of high blood pressure (hypertension). Monitor your blood pressure over time. Make sure your blood pressure medicine is working. Supplies needed: Blood pressure monitor. A chair to sit in. This should be a chair where you can sit upright with your back supported. Do not sit on a soft couch or an armchair. Table or desk. Small notebook and pencil or pen. How to prepare To get the most accurate reading, avoid the following for 30 minutes before you check your blood pressure: Drinking caffeine. Drinking alcohol. Eating. Smoking. Exercising. Five minutes before you check your blood pressure: Use the bathroom and urinate so that you have an empty bladder. Sit quietly in a chair. Do not talk. How to take your blood pressure To check your blood pressure, follow the instructions in the manual that came with your blood pressure monitor. If you have a digital blood pressure monitor, the instructions may be as follows: 1. Sit up straight in a chair. 2. Place your feet on the floor. Do not cross your ankles or legs. 3. Rest your left arm at the level of your heart on a table or desk or on the arm of a chair. 4. Pull up your shirt sleeve. 5. Wrap the blood pressure cuff around the upper part of your left arm, 1 inch (2.5 cm) above your elbow. It is best to wrap the cuff around bare skin. 6. Fit the cuff snugly, but not too tightly, around your arm. You should be able to place only one finger between the cuff and your arm. 7. Position the cord so that it rests in the bend of your elbow. 8. Press the power button. 9. Sit quietly while the cuff inflates and deflates. 10. Read the digital reading on the monitor screen and write the numbers down (record them) in a notebook. 11. Wait 2 3 minutes, then repeat the steps, starting at step 1. What does my blood pressure reading mean? A blood pressure reading consists of a higher number over a lower number. Ideally, your blood pressure should be below 120/80. The first ( top ) number is called the systolic pressure. It is a measure of the pressure in your arteries as your heart beats. The second ( bottom ) number is called the diastolic pressure. It is a measure of the pressure in your arteries as the heart relaxes. Blood pressure is classified into four stages. The following are the stages for adults who do not have a short-term serious illness or a chronic condition. Systolic pressure and diastolic pressure are measured in a unit called mm Hg (millimeters of mercury). Normal Systolic pressure: below 120. Diastolic pressure: below 80. Elevated Systolic pressure: 120 1 29. Diastolic pressure: below 80. Hypertension stage 1 Systolic pressure: 130 1 39. Diastolic pressure: 80 8 9. Hypertension stage 2 Systolic pressure: 140 or above. Diastolic pressure: 90 or above. You can have elevated blood pressure or hypertension even if only the systolic or only the diastolic number in your reading is higher than normal. Follow these instructions at home: Medicines Take irte-blf-nrxobrq and prescription medicines only as told by your health care provider. Tell your health care provider if you are having any side effects from blood pressure medicine. General instructions Check your blood pressure as often as recommended by your health care provider. Check your blood pressure at the same time every day. Take your monitor to the next appointment with your health care provider to make sure that: You are using it correctly. It provides accurate readings. Understand what your goal blood pressure numbers are. Keep all follow-up visits. This is important. General tips Your health care provider can suggest a reliable monitor that will meet your needs. There are several types of home blood pressure monitors. Choose a monitor that has an arm cuff. Do not choose a monitor that measures your blood pressure from your wrist or finger. Choose a cuff that wraps snugly, not too tight or too loose, around your upper arm. You should be able to fit only one finger between your arm and the cuff. You can buy a blood pressure monitor at most [employer] or online. Where to find more information [place] [employer]: www.heart.org Contact a health care provider if: Your blood pressure is consistently high. Your blood pressure is suddenly low. Get help right away if: Your systolic blood pressure is higher than 180. Your diastolic blood pressure is higher than 120. These symptoms may be an emergency. Get help right away. Call 911. Do not wait to see if the symptoms will go away. Do not drive yourself to the hospital. Summary Blood pressure is a measurement of how strongly your blood is pressing against the quiros of your arteries. A blood pressure reading consists of a higher number over a lower number. Ideally, your blood pressure should be below 120/80. Check your blood pressure at the same time every day. Avoid caffeine, alcohol, smoking, and exercise for 30 minutes prior to checking your blood pressure. These agents can affect the accuracy of the blood pressure reading. This information is not intended to replace advice given to you by your health care provider. Make sure you discuss any questions you have with your health care provider. Document Revised: 04/21/2022 Document Reviewed: 04/21/2022 [employer] Patient Education 2023 [employer] Extracted from:Title: Family Medicine - COVID resolving (Virtual) Author: AMANDA ARANDA DO Date: 09/07/23 1. C OVID-19 Acute. Resolving. Pt advised that she can expect COVID to resolve similarly to other viral URIs and that she is currently within the expected range of time to be having lingering symptoms. Pt was advised to RTC or seek care at [facility] if symptoms do not improve in one week. Pt agreed with the plan and had no further questions. Amanda Aranda, DO, [place], [place], Rn Rehabilitation [address] MD, [employer] Addendum by CLARKE RIVAS MD on September 08, 2023 08:59:30 SENIOR ANALYST I certify that I was present for case discussion in the Family Medicine preceptor room at the time of this encounter. I have reviewed the note and agree with the findings, assessment, and plan except as I have documented below. Follow up as listed. All labs/imaging/consults to be followed by the ordering provider. Clarke Rivas MD, C apt, [facility] Faculty Attending Family Medicine and Obstetrics Extracted from:Title: FM: Annual Author: LINCOLN PERKINS MD Date: 08/28/23 1. W ell adult Preventative Medicine / HCM visit with no emergent concerns. ----- VACCINES: - Advised annual flu vaccine - Advised COVID-19 vaccine ----- - Cervical Cancer Screening: U TD [X] Final Pap smear due in June 2025, if benign - Breast C ancer Screening: DUE [X] Age 50-75; initiate screening and repeat q1-2 yrs per USPSTF - L frankie Cancer Screening: N /A [_] Age 50-80 a nd 20 pack-yr smoking hx p er USPSTF - C olon Cancer Screening: D UE [X] Age > 4 5 per USPSTF Referral placed: [age]-year-old woman who is due for screening colonoscopy. No history of abnormal colonoscopies. Please complete screening colonoscopy, and treat as needed. ----- BONE DENSITY: UTD [X] Age > 6 5 , next due i n 1 year ----- METABOLIC: - L ipid screening: U TD - D M screening: UTD ----- SUBSTANCE USE: - T obacco use: D enies - Alcohol use: Denies - Illicit drug use: Denies ----- FOLLOW UP: - Annually Ordered: MG Mammo Ilya Screening Bilateral Referral Request 2.0 Orders: alendronate(alendronate 35 mg oral tablet), 1 tab(s), Oral, every week, # 13 tab(s), 3 total refill(s), Maintenance, 1 tab(s) Oral every week, Pharmacy: [facility] [Not filled] hydroCHLOROthiazide(hydroCHLOROthia zide 25 mg oral tablet), 1 tab(s), Oral, Daily, # 90 tab(s), 3 total refill(s), Maintenance, 1 tab(s) Oral Daily, Pharmacy: [facility] [Not filled] lisinopril(lisinopril 20 mg oral tablet), 1 tab(s), Oral, Daily, # 90 tab(s), 3 total refill(s), Maintenance, 1 tab(s) Oral Daily, Pharmacy: [facility] [Not filled] simvastatin(simvastatin 20 mg oral tablet), 1 tab(s), Oral, every evening, # 90 tab(s), 3 total refill(s), Maintenance, 1 tab(s) Oral every evening, Pharmacy: [facility] [Not filled] Lincoln Perkins, (), [facility] Rn Rehabilitation, PGY-1 [employer] Addendum by TAYLOR DORSEY MD on August 29, 2023 08:43:40 SENIOR ANALYST I certify that I was present for case discussion in the Family Medicine preceptor room at the time of this encounter. I have reviewed the note and agree with the findings, assessment, and plan except as I have documented below. Follow up as listed. All labs/imaging/consults to be followed by the ordering provider. Taylor Dorsey MD Future Scheduled TestsLaboratoryMicroalbumin Level, Urine 08/02/emoglobin A1c 08/02/24Basic Metabolic Panel 08/02/24Lipid Panel 08/02/24 11/23/2024 [id number] [facility] Assessment and Plan Extracted from:Title : Annual Well/Chronic Meds Author: BALDO LUQUE DO Date: 11/05/24 1. W sunny adult Preventative Medicine / HCM visit with no emergent concerns. ----- VACCINES: - Advised annual flu vaccine - Advised COVID-19 vaccine ----- - Cervical Cancer Screening: U TD [X] Final Pap smear d ue in June 2025, if benign ( never had a typical pap smear, does not necessarily need pap-smear, discussed with patient) - Breast C ancer Screening: UTD [X] Age 50-75; BIRADS 2 2024 - frankie Cancer Screening: N /A [_] Age 50-80 a nd 20 pack-yr smoking hx p er USPSTF - C olon Cancer Screening: D UE [X] Age > 4 5 per USPSTF Referral placed: [age]-year-old woman who is due for screening colonoscopy. No history of abnormal colonoscopies. Please complete screening colonoscopy, and treat as needed. ----- BONE DENSITY: UTD [X] Age > 6 5 , next due i n 1 year ----- METABOLIC: - L ipid screening: U TD - D M screening: UTD ----- SUBSTANCE USE: - T obacco use: D enies - Alcohol use: Denies - Illicit drug use: Denies ----- FOLLOW UP: Annually 2. O steoporosis Chronic, Treated History of Osteoporosis for 3 years on alendronate Plan: Repeat CT bone density scan in 1 year Continue Alendronate therapuy 3. S creening for malignant neoplasm of colon done Referral placed for colonoscopy screen Ordered: Referral Request 2.0 - DoD 4. H ypertension Chronic Controlled Less than 140/90 per JNC8 Plan: Refill chronic medication 5. O besity Chronic, Uncontrolled Ht:175.3 cm Wt: 98.5kg BMI: 32.05 Plan: Nutrition Referral Ordered: Referral Request 2.0 - DoD 6. T achycardia Chronic, Asymptomatic No history of ASCVD. On statin. Denies CP and Palpitations. Repeat HR 95 bpm Plan: CTM Baldo Luque DO, CAPT [facility] Resident Provider Addendum by CLARKE RIVAS MD on November 05, 2024 17:22:57 CDT I certify that I was present for case discussion in the Family Medicine preceptor room at the time of this encounter. I have reviewed the note and agree with the findings, assessment, and plan except as I have documented below. Follow up as listed. All labs/imaging/consults to be followed by the ordering provider. Clarke Rivas MD, [facility], [facility], Family Medicine and Obstetrics Faculty Physician [address] [place] [address], HCOS/SG O [facility] BERNARDO Whitten Extracted from:Title: FM: BP Author: SHAKIRA SAUCEDO MD Date: 08/02/24 1. H ypertensive disorder C hronic, c ontrolled. Pt with BP within g oal range per J NC-8 guidelines w ith goal of < 140/90. No medication side effects or concerns of non-adherence. Recommendations: - M edication Change(s): T ransition to combo pill per pharmacy availability; same dosage?lisinopril 20, HCTZ 25 - Discussed lifestyle modifications as listed below - Maintenance Labs: RFP, ACR, A1C, Lipid Panel - R ecommended continued home B P m onitoring and validating monitor - Follow up in 1 month- Patient agrees with plan Ordered: lisinopril-hydroCHLOROthiazide(fiordaliza nopril-hydroCHLOROthiazide 20mg-25mg oral tablet), 1 tab(s), Oral, Daily, for blood pressure, # 90 tab(s), 3 total refill(s), Maintenance, 1 tab(s) Oral Daily,Instr:for blood pressure, Pharmacy: [facility] [Federal Rx: #90 last filled 08/02/24] Basic Metabolic Panel Hemoglobin A1c Lipid Panel Microalbumin Level, Urine MG Mammo Ilya Screening Bilateral 2. W ell adult O rdered labs for annual visit due in August -Referred to GI for colonoscopy/family medicine Dr. Rivas Mammography ordered -Return to clinic for in person laboratory laci jenkins, and annual physical Refilled alendronate Ordered: Referral Request 2.0 - DoD 3. H yperlipidemia C hronic, stable -Simvastatin 10 refilled -Lipid panel ordered Orders: alendronate(alendronate 35 mg oral tablet), 1 tab(s), Oral, every week, # 13 tab(s), 3 total refill(s), Maintenance, 1 tab(s) Oral every week, Pharmacy: [facility] [Not filled] simvastatin(simvastatin 20 mg oral tablet), 1 tab(s), Oral, every morning, # 90 tab(s), 3 total refill(s), Maintenance, 1 tab(s) Oral every morning, Pharmacy: [facility] [Not filled] Capt Shakira Saucedo MD Rn Rehabilitation P GY-[facility]/ [facility] [employer] [employer], [place] Staffed By: Darek the above note has been dictated partially or in totality with the assistance of [employer] dictation software. While it was proofread for errors, there may still be grammatical and dictation errors. Addendum by SUKHJINDER HOPE DO on August 06, 2024 10:58:22 SENIOR ANALYST I certify that I was present for case discussion in the Family Medicine preceptor room at the time of this encounter. I have reviewed the note and agree with the findings, assessment, and plan except as I have documented below. Follow up as listed. All labs/imaging/consults to be followed by the ordering provider. DO [place], Family Medicine-Obstetrics Physician [facility] [id number] BERNARDO Whitten Extracted from:Title: Ambulatory Patient Education Author: SHAKIRA SAUCEDO MD Date: 08/02/24 Forms Blood Pressure Record Sheet To take your blood pressure, you will need a blood pressure machine. You may be prescribed one, or you can buy a blood pressure machine (blood pressure monitor) at your clinic, drug store, or online. When choosing one, look for these features: An automatic monitor that has an arm cuff. A cuff that wraps snugly, but not too tightly, around your upper arm. You should be able to fit only one finger between your arm and the cuff. A device that stores blood pressure reading results. Do not choose a monitor that measures your blood pressure from your wrist or finger. Follow your health care provider's instructions for how to take your blood pressure. To use this form: Get one reading in the morning (a.m.) before you take any medicines. Get one reading in the evening (p.m.) before supper. Take at least two readings with each blood pressure check. This makes sure the results are correct. Wait 1 2 minutes between measurements. Write down the results in the spaces on this form. Repeat this once a week, or as told by your health care provider. Make a follow-up appointment with your health care provider to discuss the results. Blood pressure log Date: a.m. (1st reading) (2nd reading) p.m. (1st reading) (2nd reading) Date: a.m. (1st reading) (2nd reading) p.m. (1st reading) (2nd reading) Date: a.m. (1st reading) (2nd reading) p.m. (1st reading) (2nd reading) Date: a.m. (1st reading) (2nd reading) p.m. (1st reading) (2nd reading) Date: a.m. (1st reading) (2nd reading) p.m. (1st reading) (2nd reading) This information is not intended to replace advice given to you by your health care provider. Make sure you discuss any questions you have with your health care provider. Document Revised: 04/21/2022 Document Reviewed: 04/21/2022 [employer] Patient Education 2023 [employer] Preventive Health Heart Disease Prevention Heart disease is the leading cause of in the world. Coronary artery disease is the most common cause of heart disease. This condition results when cholesterol and other substances (plaque) build up inside the quiros of the blood vessels that supply your heart muscle (arteries). This buildup in arteries is called atherosclerosis. You can take actions to lower your risk of heart disease. How can heart disease affect me? Heart disease can cause many unpleasant symptoms and complications, such as: Chest pain (angina). Reduced or blocked blood flow to your heart. This can cause: Irregular heartbeats (arrhythmias). Heart attack. Heart failure. What can increase my risk? The following factors may make you more likely to develop this condition: High blood pressure (hypertension). High cholesterol. A diet high in saturated fats or trans fats. Obesity. Diabetes. Having a family history of heart disease. Certain lifestyle factors, including: Smoking. Lack of physical activity. Drinking too much alcohol. What actions can I take to prevent heart disease? Nutrition Follow a heart-healthy eating plan as told by your health care provider. Examples include the DASH eating plan. DASH stands for Dietary Approaches to Stop Hypertension. Generally, it is recommended that you: Eat less salt (sodium). Ask your health care provider how much sodium is safe for you. Most people should have less than 2,300 mg each day. Limit unhealthy fats, such as saturated and trans fats, in your diet. You can do this by eating low-fat dairy products, eating less red meat, and avoiding processed foods. Eat healthy fats (omega-3 fatty acids). These are found in fish, such as mackerel or salmon. Eat more fruits and vegetables. You should try to fill one-half of your plate with fruits and vegetables at each meal. Eat more whole grains. Avoid foods and drinks that have added sugars. Try to limit how much added sugar you have to: Less than 25 grams a day for women. Less than 36 grams a day for men. Lifestyle Get regular exercise. This is one of the most important things you can do for your health. Generally, it is recommended that you: Exercise for at least 30 minutes on most days of the week (150 minutes each week). This should be exercise that causes your heart to beat faster (aerobic exercise). Add strength exercises on at least 2 days each week. Do not use any products that contain nicotine or tobacco. These products include cigarettes, chewing tobacco, and vaping devices, such as e-cigarettes. These can damage your heart and blood vessels. If you need help quitting, ask your health care provider. Alcohol use Do not drink alcohol if: Your health care provider tells you not to drink. You are , may be , or are planning to become . If you drink alcohol: Limit how much you have to: 0 1 drink a day for women. 0 2 drinks a day for men. Know how much alcohol is in your drink. In the [place] one drink equals one 12 oz bottle of beer (355 mL), one 5 oz glass of wine (148 mL), or one 1 oz glass of hard liquor (44 mL). Medicines Take wbgt-obw-clzdxzi and prescription medicines only as told by your health care provider. Work with your health care provider to find out whether it is safe and beneficial for you to take aspirin daily. Make sure that you understand how much to take and what form to take. Depending on your risk factors, your health care provider may prescribe medicines to lower your risk of heart disease or to control related conditions. You may take medicine to: Lower cholesterol. Control blood pressure. Control diabetes. General information Keep your blood pressure under control, as recommended by your health care provider. For most healthy people, the upper number of their blood pressure (systolic) should be no higher than 120, and the lower number (diastolic) no higher than 80. Treatment may be needed if your blood pressure is higher than 130/80. Have your blood pressure checked at least every 2 years. Your health care provider may check your blood pressure more often if you have high blood pressure. After age 20, have your cholesterol checked every 4 6 years. If you have risk factors for heart disease, you may need to have it checked more often. Treatment may be needed if your cholesterol is high. Have your body mass index (BMI) checked every year. Your health care provider can calculate your BMI from your height and weight. Check your waist circumference. It should be: No more than 35 inches (89 cm) for women who are not . No more than 40 inches (102 cm) for men. Work with your health care provider to lose weight, if needed, or to maintain a healthy weight. Where to find more information: Centers for Disease Control and Prevention: www.cdc.gov/heartdisease [place] [employer]: www.heart.org Summary Heart disease is the leading cause of in the world. Heart disease can cause chest pain, abnormal heart rhythms, heart attack, and heart failure. Some of the risk factors for heart disease include high blood pressure, high cholesterol, and smoking. You can take actions to lower your chances of developing heart disease. Work with your health care provider to reduce your risk by following a heart-healthy diet, being physically active, and controlling your weight, blood pressure, and cholesterol level. This information is not intended to replace advice given to you by your health care provider. Make sure you discuss any questions you have with your health care provider. Document Revised: 04/06/2022 Document Reviewed: 04/06/2022 [employer] Patient Education 2023 [employer] Procedures How to Take Your Blood Pressure Blood pressure is a measurement of how strongly your blood is pressing against the quiros of your arteries. Arteries are blood vessels that carry blood from your heart throughout your body. Your health care provider takes your blood pressure at each office visit. You can also take your own blood pressure at home with a blood pressure monitor. You may need to take your own blood pressure to: Confirm a diagnosis of high blood pressure (hypertension). Monitor your blood pressure over time. Make sure your blood pressure medicine is working. Supplies needed: Blood pressure monitor. A chair to sit in. This should be a chair where you can sit upright with your back supported. Do not sit on a soft couch or an armchair. Table or desk. Small notebook and pencil or pen. How to prepare To get the most accurate reading, avoid the following for 30 minutes before you check your blood pressure: Drinking caffeine. Drinking alcohol. Eating. Smoking. Exercising. Five minutes before you check your blood pressure: Use the bathroom and urinate so that you have an empty bladder. Sit quietly in a chair. Do not talk. How to take your blood pressure To check your blood pressure, follow the instructions in the manual that came with your blood pressure monitor. If you have a digital blood pressure monitor, the instructions may be as follows: 1. Sit up straight in a chair. 2. Place your feet on the floor. Do not cross your ankles or legs. 3. Rest your left arm at the level of your heart on a table or desk or on the arm of a chair. 4. Pull up your shirt sleeve. 5. Wrap the blood pressure cuff around the upper part of your left arm, 1 inch (2.5 cm) above your elbow. It is best to wrap the cuff around bare skin. 6. Fit the cuff snugly, but not too tightly, around your arm. You should be able to place only one finger between the cuff and your arm. 7. Position the cord so that it rests in the bend of your elbow. 8. Press the power button. 9. Sit quietly while the cuff inflates and deflates. 10. Read the digital reading on the monitor screen and write the numbers down (record them) in a notebook. 11. Wait 2 3 minutes, then repeat the steps, starting at step 1. What does my blood pressure reading mean? A blood pressure reading consists of a higher number over a lower number. Ideally, your blood pressure should be below 120/80. The first ( top ) number is called the systolic pressure. It is a measure of the pressure in your arteries as your heart beats. The second ( bottom ) number is called the diastolic pressure. It is a measure of the pressure in your arteries as the heart relaxes. Blood pressure is classified into four stages. The following are the stages for adults who do not have a short-term serious illness or a chronic condition. Systolic pressure and diastolic pressure are measured in a unit called mm Hg (millimeters of mercury). Normal Systolic pressure: below 120. Diastolic pressure: below 80. Elevated Systolic pressure: 120 1 29. Diastolic pressure: below 80. Hypertension stage 1 Systolic pressure: 130 1 39. Diastolic pressure: 80 8 9. Hypertension stage 2 Systolic pressure: 140 or above. Diastolic pressure: 90 or above. You can have elevated blood pressure or hypertension even if only the systolic or only the diastolic number in your reading is higher than normal. Follow these instructions at home: Medicines Take qswl-qri-gxahyjv and prescription medicines only as told by your health care provider. Tell your health care provider if you are having any side effects from blood pressure medicine. General instructions Check your blood pressure as often as recommended by your health care provider. Check your blood pressure at the same time every day. Take your monitor to the next appointment with your health care provider to make sure that: You are using it correctly. It provides accurate readings. Understand what your goal blood pressure numbers are. Keep all follow-up visits. This is important. General tips Your health care provider can suggest a reliable monitor that will meet your needs. There are several types of home blood pressure monitors. Choose a monitor that has an arm cuff. Do not choose a monitor that measures your blood pressure from your wrist or finger. Choose a cuff that wraps snugly, not too tight or too loose, around your upper arm. You should be able to fit only one finger between your arm and the cuff. You can buy a blood pressure monitor at most [employer] or online. Where to find more information [place] [employer]: www.heart.org Contact a health care provider if: Your blood pressure is consistently high. Your blood pressure is suddenly low. Get help right away if: Your systolic blood pressure is higher than 180. Your diastolic blood pressure is higher than 120. These symptoms may be an emergency. Get help right away. Call 911. Do not wait to see if the symptoms will go away. Do not drive yourself to the hospital. Summary Blood pressure is a measurement of how strongly your blood is pressing against the quiros of your arteries. A blood pressure reading consists of a higher number over a lower number. Ideally, your blood pressure should be below 120/80. Check your blood pressure at the same time every day. Avoid caffeine, alcohol, smoking, and exercise for 30 minutes prior to checking your blood pressure. These agents can affect the accuracy of the blood pressure reading. This information is not intended to replace advice given to you by your health care provider. Make sure you discuss any questions you have with your health care provider. Document Revised: 04/21/2022 Document Reviewed: 04/21/2022 Elsevier Patient Education 2023 [employer] Extracted from:Title: Family Medicine - COVID resolving (Virtual) Author: AMANDA ARANDA DO Date: 09/07/23 1. C OVID-19 Acute. Resolving. Pt advised that she can expect COVID to resolve similarly to other viral URIs and that she is currently within the expected range of time to be having lingering symptoms. Pt was advised to RTC or seek care at [facility] if symptoms do not improve in one week. Pt agreed with the plan and had no further questions. Amanda Aranda DO, [place], [place], Rn Rehabilitation [address] MDG, [employer] Addendum by CLARKE RIVAS MD on September 08, 2023 08:59:30 SENIOR ANALYST I certify that I was present for case discussion in the Family Medicine preceptor room at the time of this encounter. I have reviewed the note and agree with the findings, assessment, and plan except as I have documented below. Follow up as listed. All labs/imaging/consults to be followed by the ordering provider. Clarke Rivas MD, C apt, [facility] Faculty Attending Family Medicine and Obstetrics Extracted from:Title: FM: Annual Author: LINCOLN PERKINS MD Date: 08/28/23 1. W ell adult Preventative Medicine / HCM visit with no emergent concerns. ----- VACCINES: - Advised annual flu vaccine - Advised COVID-19 vaccine ----- - Cervical Cancer Screening: U TD [X] Final Pap smear due in June 2025, if benign - Breast C ancer Screening: DUE [X] Age 50-75; initiate screening and repeat q1-2 yrs per [facility] - L frankie Cancer Screening: N /A [_] Age 50-80 a nd 20 pack-yr smoking hx p er [facility] - C olon Cancer Screening: D UE [X] Age > 4 5 per [facility] Referral placed: 8 6-year-old woman who is due for screening colonoscopy. No history of abnormal colonoscopies. Please complete screening colonoscopy, and treat as needed. ----- BONE DENSITY: UTD [X] Age > 6 5 , next due i n 1 year ----- METABOLIC: - L ipid screening: U TD - D M screening: UTD ----- SUBSTANCE USE: - T obacco use: D enies - Alcohol use: Denies - Illicit drug use: Denies ----- FOLLOW UP: - Annually Ordered: MG Mammo Ilya Screening Bilateral Referral Request 2.0 Orders: alendronate(alendronate 35 mg oral tablet), 1 tab(s), Oral, every week, # 13 tab(s), 3 total refill(s), Maintenance, 1 tab(s) Oral every week, Pharmacy: [facility] [Not filled] hydroCHLOROthiazide(hydroCHLOROthia zide 25 mg oral tablet), 1 tab(s), Oral, Daily, # 90 tab(s), 3 total refill(s), Maintenance, 1 tab(s) Oral Daily, Pharmacy: [facility] [Not filled] lisinopril(lisinopril 20 mg oral tablet), 1 tab(s), Oral, Daily, # 90 tab(s), 3 total refill(s), Maintenance, 1 tab(s) Oral Daily, Pharmacy: [facility] [Not filled] simvastatin(simvastatin 20 mg oral tablet), 1 tab(s), Oral, every evening, # 90 tab(s), 3 total refill(s), Maintenance, 1 tab(s) Oral every evening, Pharmacy: [facility] [Not filled] Capt Irish (), [facility] Rn Rehabilitation, PGY-1 [employer] Addendum by TAYLOR DORSEY MD on August 29, 2023 08:43:40 SENIOR ANALYST I certify that I was present for case discussion in the Family Medicine preceptor room at the time of this encounter. I have reviewed the note and agree with the findings, assessment, and plan except as I have documented below. Follow up as listed. All labs/imaging/consults to be followed by the ordering provider. Taylor Dorsey MD Future Scheduled TestsLaboratoryMicroalbumin Level, Urine 08/02/24emoglobin A1c 08/02/24Basic Metabolic Panel 08/02/24Lipid Panel 08/02/24 11/23/2024 Unknown Organization Functional Status Combined list of recent functional and cognitive assessments recorded at [facility] Functional Durand Measurement (FIM) Scale: 1 = Total Assistance (Subject = 0% +), 2 = Maximal Assistance (Subject = 25% +), 3 = Moderate Assistance (Subject = 50% +), 4 = Minimal Assistance (Subject = 75% +), 5 = Supervision, 6 = Modified Durand (Device), 7 = Complete Durand (Timely, Safely). Assessment Date/Time Source Assessment Type Assessment Skill Assessment Score Assessment Details No data available for this section
[2024-11-23 12:46] VITALS: BP 153/61; PULSE 115; RESP 20; TEMP 36.4; O2SAT 98
--- NOTE | 2024-11-23 13:08 | ECG_ITS ---
Test Date: 2024-11-23 13:48:38 Measurements Intervals [place] Rate: 99 P: 38 TX: 158 QRS: 22 QRSD: 82 T: 12 QT: 315 QTc: 404 Interpretive Statements SINUS RHYTHM WITH OCCASIONAL VENTRICULAR PREMATURE COMPLEXES LOW QRS VOLTAGE IN PRECORDIAL LEADS BORDERLINE ECG No previous ECG available for comparison Electronically Signed On 11-23-2024 14:49:05 CDT by Dickson Lai D.O.
--- OUTSIDE RECORDS SUMMARY | 2024-11-23 13:34 | XMS_ITS | Continuity of Care Document ---
Author Name [facility] Organization [facility] Care Team Providers Care Computational Theory Scientist Name Role Phone [facility] Unavailable Unavailable Problems Combined list of problems [...] Comment: \nto start bisphosphonate at recommendation of Communications Representative 6130C-Af- C-375Th [facility] Vitamin D deficiency [...] 13 tab(s), 3 total refill(s ), [facility], Pharmacy : [facility] Oral (given by mouth) Discont inued 08/02/2024 4 2023 13.0 6130C-A f-C-375 Th [facility] [place] alendronate 35 mg oral tablet 1 tab(s), Oral, every week, # 13 tab(s), 3 total refill(s ), [facility], Pharmacy : [facility] Oral (given by mouth) Ordered 5 2023 13.0 6130C-A f-C-375 Th [facility] [place] alendronate 35 mg tablet See Instruct ions, # 12 EA, 2 total refill(s ), Acute Discont inued 08/28/2023 3 2023 12.0 Ambulat ory Pharmac y hydroCHLORO thiazide 25 mg oral tablet 1 tab(s), Oral, Daily, # 90 tab(s), 3 total refill(s ), Maintena mie, Pharmacy : [facility] Oral (given by mouth) Discont [...] # 90 tab(s), 3 total refill(s ), [facility], Pharmacy : [facility] Oral (given by mouth) Discont inued 08/02/2024 4 2023 90.0 6130C-A f-C-375 Th [facility] [place] lisinopril 20 mg tablet See Instruct ions, # 90 EA, 2 total refill(s ), Acute Discont inued 08/28/2023 3 2023 90.0 Ambulat ory Pharmac y lisinopril- hydroCHLORO thiazide 20mg-25mg oral tablet 1 tab(s), Oral, Daily, for blood pressure , # 90 tab(s), 3 total refill(s ), [facility], Pharmacy : [facility] Oral (given by mouth) Ordered [...] # 90 tab(s), 3 total refill(s ), [facility], Pharmacy : [facility] Oral (given by mouth) Discont inued 08/02/2024 4 2023 90.0 6130C-A f-C-375 Th [facility] [place] simvastatin 20 mg oral tablet 1 tab(s), Oral, every morning, # 90 tab(s), 3 total refill(s ), [facility], Pharmacy : [facility] Oral (given by mouth) Ordered 5 2023 90.0 6130C-A f-C-375 Th [facility] [place] simvastatin 20 mg oral tablet [...] Site Reaction Lot Number CVX Code Drug Sap Business Analyst Status Comments Source tetanus-dipht h toxoids (Td) adult/adol 2022 [facility] [id number] comple t ed Result Comment: Route: Intramusc ular(IM) Manufactu rer: Sanofi Pasteur (PMC) 6130C-A f-C-375 Th [facility] [place] pneumococcal 20-valent conjugate vaccine 2022 [facility] [id number] comple t ed Result Comment: Route: Intramusc ular(IM) Manufactu rer: Pfizer, Inc (PFR) 6130C-A f-C-375 Th [facility] [place] influenza, injectable, quadrivalent- pf 2020 KILEYSCHLORTT 150 comple t ed Result Comment: Unit: Unknown Manufactu rer: () 6130C-A f-C-375 Th [facility] [place] COVID Vaccine Pfizer 2020 KILEYSCHLORTT 208 comple t ed Result Comment: Unit: Unknown Manufactu rer: Pfizer Manufactu ring [place] (PFR) 6130C-A f-C-375 Th [facility] [place] COVID Vaccine Pfizer 2020 KILEYSCHLORTT 208 comple t ed Result Comment: Unit: Unknown Manufactu rer: Pfizer Manufactu ring [place] (PFR) 6130C-A f-C-375 Th [facility] [place] COVID Vaccine Pfizer 2020 KILEYSCHLORTT 208 comple t ed Result Comment: Unit: Unknown Manufactu rer: Pfizer Manufactu [facility] [place] (PFR) 6130C-A f-C-375 Th [facility] [place] zoster vaccine, inactivated 2020 zzLef t Arm [id number] 187 GlaxoSmithKli ne complet ed zoster vaccine, inactivat ed 08/28/20 Given Ambulat ory Pharmac y zoster vaccine, inactivated 2019 zzLef t Arm [id number] 187 GlaxoSmithKli ne complet ed zoster vaccine, inactivat ed 06/10/20 Given Ambulat ory Pharmac y Influenza, inj, MDCK, quadrivalent- pf 2019 zzLef t Arm [id number] Seqirus complet ed Influenza , inj, [...] influenza, seasonal, injectable 2011 zzLef t Arm [id number] 141 sanofi pasteur complet ed influenza , seasonal, injectabl e 06/22/12 Given Ambulat ory Pharmac y influenza, seasonal, injectable 2010 zzRig ht Arm [id number] 141 sanofi pasteur complet ed influenza , seasonal, injectabl e 06/13/11 Given Ambulat ory Pharmac y tetanus, diphtheria, acellular pertu is 2010 zzLef t Arm [id number] 115 GlaxoSmithKli ne complet ed tetanus, diphtheri a, acellular pertussis 06/13/11 Given Ambulat ory Pharmac y Novel influenza-H1N 1-09, injectable 2009 KILEYSCHLORTT 127 comple t ed Result Comment: Unit: Unknown Manufactu rer: Sanofi Pasteur Inc. ([facility]) 6130C-A f-C-375 Th [facility] [place] tetanus-dipht h toxoids (Td) adult/adol 2000 zzLef t Arm [id number] 09 sanofi pasteur complet ed tetanus-d iphth [...] Severe decrease <15 Kidney failure 0055A-3 75th [facility] [place] Chemistry Alk Phos 68 U/L 40 - 150 11/04 N 0055A-3 75th [facility] [place] Chemistry Glucose Lvl 92 mg/dL 74 - 99 11/04 N 0055A-3 75th [facility] [place] Chemistry Potassium Lvl 4.0 mmol/L 3.5 - 5.1 11/04 N 0055A-3 75th [facility] [place] Chemistry Sodium 140 mmol/L 136 - 145 11/04 N 0055A-3 75th [facility] [place] Chemistry Albumin 3.90 g/dL 3.50 - 5.20 11/04 N 0055A-3 75th [facility] [place] Chemistry Protein Total 7.6 g/dL 6.4 - 8.3 11/04 N -[address] [place] [address] Chemistry Creatinine Level 0.80 mg/dL 0.57 - 1.11 11/04 N -[address] [place] [address] Chemistry AGAP 8.00 0.00 - 15.00 11/04 N -[address] [place] [address] Chemistry Calcium 9.8 mg/dL 8.4 - 10.2 11/04 N -[address] [place] [address] Chemistry Chloride 105 mmol/L 98 - 107 11/04 N -[address] [place] [address] Chemistry CO2 27 mmol/L 22 - 29 11/04 N -[address] [place] [address] Chemistry BUN 24 mg/dL 7 - 20 11/04 H -[address] [place] [address] Chemistry BUN/Creat Ratio 30 mg/dL 12 - 20 11/04 H -[address] [place] [address] Chemistry Bilirubin Total 0.5 mg/dL 0.2 - 1.2 11/04 N -[address] [place] [address] Chemistry AST 14 U/L 5 - 34 11/04 N -[address] [place] [address] Chemistry ALT 14 U/L 5 - 55 11/04 N -[address] [place] [address] Chemistry Chol/HDL 4 mg/dL 11/04 005-[address] [place] [address] Chemistry Triglycerid es 92 mg/dL 7 - 149 11/04 N Interpretive Data: AGES 0-9: Desirable: < 75 mg/dL Borderline High: 75-99 mg/dL High: >/= 100 mg/dL AGES 10-19: Desirable: < 90 mg/dL Borderline High: 90-129 mg/dL High: >/= 130 mg/dL ADULTS: Desirable: < 150 mg/dL Borderline High: 150-199 mg/dL High: >/= 240 mg/dL Very High: >/= 500 mg/dL [address] [place] [address] Chemistry LDL 111 mg/dL 100 - 130 11/04 N Interpretive Data: AGES 0-19: Desirable: < 110 mg/dL Borderline High: 110-129 mg/dL High: >/= 130 mg/dL ADULTS: Desirable: <100 mg/dL Near/above optimal: 100-130 mg/dL Borderline High: 131-159 mg/dL High: 160-189 mg/dL Very High: 190 mg/dL [address] [place] [address] Chemistry LDL/HDL 2 11/[address] [place] [address] Chemistry HDL Cholesterol 48 mg/dL 40 - 59 11/04 N Interpretive Data: HDL (HIGH DENSITY LIPOPROTEIN) : ADULTS: Low: < 40 mg/dL High: >/= 60 mg/dL AGES 0 -19: Low: < 40 mg/dL Borderline Low: 40 - 45 mg/dL Acceptable: > 45 mg/dL [address] [place] [address] Chemistry Cholesterol Total 171 mg/dL 11/04 N Interpretive Data: According to the [place] Heart Association: AGES 0-19: Desirable: < 170 mg/dL Borderline High: 170-199 mg/dL High Blood Cholesterol: >/= 200 mg/dL ADULTS: Desirable < 200 mg/dL Borderline High: 200-239 mg/dL High Blood Cholesterol: >/= 240 mg/dL [address] [place] [address] Chemistry Hemoglobin A1c 5.5 % 4.0 - [...] diabetes. Because studies have repeatedly shown that hec-kh-qluzk ol diabetes results in complication s from the disease, the goal for people with diabetes is a hemoglobin A1c less than 7%. The higher the hemoglobin A1c, the higher the risks of developing complication s related to diabetes. If confirmation is needed, consider recalling the patient and ordering Hemoglobin Electrophore sis. [address] [place] [address] Chemistry eAvg Glucose 111 mg/dL 11/[address] [place] [address] Chemistry Ur Microalbumi n <5 mg/L 11/04 N Interpretive Data: To minimize intra-indivi dual variation, analysis of three random urine samples collected over the course of a week has also been recommended. Result Comment: Below detectable range of Analyzer [address] [place] [address] Chemistry LDL/HDL 2 08/[address] [place] [address] Chemistry Triglycerid es 134 mg/dL 7 - 149 08/22 N Interpretive Data: AGES 0-9: Desirable: < 75 mg/dL Borderline High: 75-99 mg/dL High: >/= 100 mg/dL AGES 10-19: Desirable: < 90 mg/dL Borderline High: 90-129 mg/dL High: >/= 130 mg/dL ADULTS: Desirable: < 150 mg/dL Borderline High: 150-199 mg/dL High: >/= 240 mg/dL Very High: >/= 500 mg/dL [address] [place] [address] Chemistry Cholesterol Total 203 mg/dL 08/22 H Interpretive Data: According to the [place] Heart Association: AGES 0-19: Desirable: < 170 mg/dL Borderline High: 170-199 mg/dL High Blood Cholesterol: >/= 200 mg/dL ADULTS: Desirable < 200 mg/dL Borderline High: 200-239 mg/dL High Blood Cholesterol: >/= 240 mg/dL [address] [place] [address] Chemistry HDL Cholesterol 56 mg/dL 40 - 59 08/22 N Interpretive Data: HDL (HIGH DENSITY LIPOPROTEIN) : ADULTS: Low: < 40 mg/dL High: >/= 60 mg/dL AGES 0 -19: Low: < 40 mg/dL Borderline Low: 40 - 45 mg/dL Acceptable: > 45 mg/dL [address] [place] [address] Chemistry LDL 124 mg/dL 100 - 130 08/22 N Interpretive Data: AGES 0-19: Desirable: < 110 mg/dL Borderline High: 110-129 mg/dL High: >/= 130 mg/dL ADULTS: Desirable: <100 mg/dL Near/above optimal: 100-130 mg/dL Borderline High: 131-159 mg/dL High: 160-189 mg/dL Very High: 190 mg/dL [address] [place] [address] Chemistry Chol/HDL 4 mg/dL 08/[address] [place] [address] Hematology Hemoglobin 13.5 g/dL 11.0 - 15.0 08/[address] [place] [address] Hematocrit 41 % 34 - 46 08/[address] [place] [address] MCH 28 pg 28 - 33 08/[address] [place] [address] Platelets 233.0 x10^3/ mcL 150.0 - 450.0103 08/[address] [place] [address] MPV 9.7 fL 7.4 - 10.4 08/[address] [place] [address] MCV 86 fL 80 - 97 08/[address] [place] [address] MCHC 33.1 g/dL 33.0 - 36.5 08/[address] [place] [address] RDW 12.9 % 11.0 - 14.9 08/[address] [place] [address] RBC 4.8 x10^6/ mcL 3.6 - 5.0106 08/[address] [place] [address] WBC 6.6 x10^3/ mcL 4.0 - 11.0103 08/[address] [place] [address] Monocyte % Auto 6 % 1 - 12 08/[address] [place] [address] [place] Absolute 0.4 x10^3/ mcL 0.2 - 0.8103 08/[address] [place] [address] Neutrophil % Auto 62.5 % 46.0 - 77.0 08/[address] [place] [address] Neutro Absolute 4.1 x10^3/ mcL 2.0 - 7.0103 08/[address] [place] [address] Basophil % Auto 0.5 % 0.0 - 2.5 08/[address] [place] [address] Baso Absolute 0.0 x10^3/ mcL 0.0 - 0.1103 08/[address] [place] [address] Eos Absolute 0.1 x10^3/ mcL 0.0 - 0.7103 08/[address] [place] [address] Hematology Lymph Absolute 1.9 x10^3/ mcL 1.2 - 4.0103 08/[address] [place] [address] Hematology Lymphocyte % Auto 29.4 % 20.0 - 40.0 08/[address] [place] [address] Hematology Eosinophil % Auto 2 % 0 - 5 08/[address] [place] [address] Chemistry eGFR CKD EPI 71 mL/min /1.73_ [...] decrease 15-29 Severe decrease <15 Kidney failure [address] [place] [address] Chemistry Glucose Lvl 96 mg/dL 74 - 99 08/[address] [place] [address] Chemistry Potassium Lvl 3.9 mmol/L 3.5 - 5.1 08/[address] [place] [address] Chemistry Sodium 140 mmol/L 136 - 145 08/[address] [place] [address] Chemistry Protein Total 7.5 g/dL 6.4 - 8.3 08/[address] [place] [address] Chemistry Creatinine Level 0.90 mg/dL 0.57 - 1.11 08/[address] [place] [address] Chemistry BUN/Creat Ratio 19 mg/dL 12 - 20 08/[address] [place] [address] Chemistry Calcium 10.1 mg/dL 8.4 - 10.2 08/[address] [place] [address] Chemistry Chloride 103 mmol/L 98 - 107 08/[address] [place] [address] Chemistry CO2 27 mmol/L 22 - 29 08/[address] [place] [address] Chemistry BUN 17 mg/dL 7 - 20 08/[address] [place] [address] Chemistry Alk Phos 72 U/L 40 - 150 08/[address] [place] [address] Chemistry ALT 19 U/L 5 - 55 08/[address] [place] [address] Chemistry AST 18 U/L 5 - 34 08/[address] [place] [address] Chemistry Bilirubin Total 0.5 mg/dL 0.2 - 1.2 08/[address] [place] [address] Chemistry Albumin 3.90 g/dL 3.50 - 5.20 08/[address] [place] [address] Chemistry AGAP 10.00 0.00 - 15.00 08/[address] [place] [address] Chemistry eAvg Glucose 111 mg/dL 08/[address] [place] [address] Chemistry Hemoglobin A1c 5.5 % 4.0 - [...] diabetes. Because studies have repeatedly shown that oks-jd-llwob ol diabetes results in complication s from the disease, the goal for people with diabetes is a hemoglobin A1c less than 7%. The higher the hemoglobin A1c, the higher the risks of developing complication s related to diabetes. If confirmation is needed, consider recalling the patient and ordering Hemoglobin Electrophore sis. 5A-[address] [place] [address] Chemistry Ur Microalbumi n <5 mg/L 08/22 N Result Comment: Below detectable range of analyzer. Interpretive Data: To minimize intra-indivi dual variation, analysis of three random urine samples collected over the course of a week has also been recommended. -[address] [place] [address] Vital Signs Combined list of inpatient and outpatient Vital Signs from Department of Defense and Veterans Affairs, ranging from 12 months to all on record, depending upon the facility. Vital Sign Value Date Comments Source Systolic Blood Pressure 125 mm[Hg] 11/05/2024 18:03:00 5402Y-Kk-U-[address] [place] [address]-[place] Diastolic Blood Pressure 73 mm[Hg] 11/05/2024 18:03:00 [facility] Mean Arterial Pressure, Calc 90 mm[Hg] 11/05/2024 18:03:00 4538T-Lr-D3 [address] [place] [address]-[place] Respiratory Rate 16 br/min 11/05/2024 18:03:00 9997R-Qz-M-[facility] Temperature Tympanic 36.8 Alyssa 11/05/2024 18:03:00 2693Z-Kz-P-375 [facility] Blood Pressure Manual Automatic 11/05/2024 18:03:00 1797S-Uw-D-375 [facility] BP Site Left arm 11/05/2024 [facility]:03[facility] Peripheral Pulse Rate 102 bpm 11/05/2024 18:03:00 0359N-Kr-M-375Th [facility] Peripheral Pulse Rate 95 bpm 11/05/2024 18:40:00 3359G-Dt-B-375Th [facility] Respiratory Rate 17 br/min 08/02/2024 20:19:00 8816L-Lk-U-375Th [facility] BP Site Left arm 08/02/2024 20:19:00 6130C -Af-C-375Th [facility] Systolic Blood Pressure 137 mm[Hg] 08/02/2024 20:19:00 4383M-Na-D-375Th [facility] Diastolic Blood Pressure 80 mm[Hg] 08/02/2024 20:19:00 3855B-Jr-Y-375Th [facility] Peripheral Pulse Rate 109 bpm 08/02/2024 20:19:00 8712D-Ks-C-375Th [facility] Mean Arterial Pressure, Calc 99 mm[Hg] 08/02/2024 20:19:00 1537N-Xu-Y-3 75Th [facility] Blood Pressure Manual Automatic 08/02/2024 20:19:00 8827D-Kh-G-375Th [facility] Peripheral Pulse Rate 93 bpm 08/02/2024 20:40:00 6596S-Mp-P-375Th [facility] Respiratory Rate 16 br/min 08/28/2023 13:58:00 6538T-La-L-375Th [facility] BP Site Left arm 08/28/2023 13:58:00 6130C -Af-C-375Th [facility] Blood Pressure Manual Manual 08/28/2023 13:58:00 4753X-Xb-N-375Th [facility] Systolic Blood Pressure 138 mm[Hg] 08/28/2023 13:58:00 8754O-Ub-A-375Th [facility] Diastolic Blood Pressure 64 mm[Hg] 08/28/2023 13:58:00 5333I-Pr-W-375Th [facility] Peripheral Pulse Rate 92 bpm 08/28/2023 13:58:00 3229B-Oj-P-375Th [facility] Mean Arterial Pressure, Calc 89 mm[Hg] 08/28/2023 13:58:00 4235J-Ta-G-3 75Th [facility] Encounters Combined list of: 1) Encounters from Department of Veterans Affairs facilities going backup to the last 18 months, not all VA inpatient encounters are included; 2) Encounters from the Department of Defense facilities going backup to 280 months. Location Location Details Encounter Type Encounter Number Reason For Visit Attending Provider ADM Date DC Date Status Disposition Source [facility] Out[facility] [id number] SHAKIRA RESTREPO 10/24 Discharge Disposition: Home or Self Care - [facility] [place] 6130C-Af- C-375Th [facility] Between Visit [id number] 10/28 Discharge Disposition: Home or Self Care 30C-A f-C-375 [facility] [place] th [facility] Outpatient [id number] RAHAT No 11/04 Discharge Disposition: Home or Self Care - [facility] [place] 30C-Af- C-375 [facility] Between Visit [id number] 11/05 Discharge Disposition: Home or Self Care 30C-A f-C- Th [facility] [place] 30C-Af- C-375 [facility] [id number] [facility] er for screeni ng for maligna nt neoplas m of colon,E ssentia l (primar y) hyperte nsion,A ge-rela uh osteopo rosis without current patholo gical fractur e,Encou nter for general adult medical examina tion without abnorma l finding s,Obesi ty, unspeci fied,Ta chycard ia, unspeci fied JACOBTHOMP SON 11/05 Discharge Disposition: Home or Self Care 61C-A f-C-375 [facility] [place] Procedures Combined list of: 1) Procedures from Department of Veterans Affairs facilities going back up to thelast 18 months, not all [place] non-surgical procedures are included; 2) All procedures [...] or cutaneous vascular proliferative lesions; first lesion [id number] 6130C-Af-C- 375 [facility] Cytopathology, slides, cervical or vaginal, definitive hormonal evaluation (eg, maturation index, karyopyknotic index, estrogenic index) (List separately in addition to code(s) for other technical and interpretation services) Cytopathology, slides, cervical or vaginal, definitive hormonal evaluation (eg, maturation index, karyopyknotic index, estrogenic index) (List separately in addition to code(s) for other technical and interpretation services) [id number] 6130C-Af-C- 375 [facility] Colorectal cancer screening; [...] proliferative lesions; second through 14 lesions, each [id number] 6130C-Af-C- 375 [facility] Endometrial sampling (biopsy) with or without endocervical sampling (biopsy), without cervical dilation, any method (separate procedure) Endometrial sampling (biopsy) with or without endocervical sampling (biopsy), without cervical dilation, any method (separate procedure) [id number] 6130C-A f-C- 375 [facility] Tangential biopsy of skin (eg, shave, scoop, saucerize, curette); single lesion Tangential biopsy of skin (eg, shave, scoop, saucerize, curette); single lesion 93504 6130C-Af-C- 375Th [facility] Shaving of epidermal or dermal lesion, single lesion, scalp, neck, hands, feet, genitalia; lesion diameter 0.6 to 1.0 cm Shaving of epidermal or dermal lesion, single lesion, scalp, neck, hands, feet, genitalia; lesion diameter 0.6 to 1.0 cm [id number] 6130C-Af-C- 375Th [facility] Screening Papanicolaou smear (Pap), cervical/vaginal, up to three smears, by noreen 6130C-Af-C- 375Th [facility] Dilation of cervical canal, instrumental (separate procedure) Dilation of cervical canal, instrumental (separate procedure) [id number] 6130C-A f-C- 375Th [facility] Social History [...] BALDO LUQUE DO Date: 11/05/24 1. [facility] adult Preventative Medicine / HCM visit with [...] bpm Plan: CTM Baldo Luque DO, , [facility] Resident Provider Addendum by CLARKE RIVAS MD [...] by the ordering provider. Clarke Rivas MD, [facility], [facility], Family Medicine and Obstetrics Faculty Physician [facility], HCOS/SGGF O F [facility] [place] Extracted from:Title: FM: BP Author: SHAKIRA SAUCEDO [...] 1 tab(s) Oral Daily,Instr:for blood pressure, Pharmacy: [facility] [Federal Rx: #90 last filled [...] Refilled alendronate Ordered: Referral Request 2.0 - [facility] 3. H yperlipidemia C hronic, stable -Simvastatin 10 refilled -Lipid panel ordered Orders: alendronate(alendronate 35 mg oral tablet), 1 tab(s), Oral, every week, # 13 tab(s), 3 total refill(s), Maintenance, 1 tab(s) Oral every week, Pharmacy: [facility] [Not filled] simvastatin(simvastatin 20 mg oral tablet), 1 tab(s), Oral, every morning, # 90 tab(s), 3 total refill(s), Maintenance, 1 tab(s) Oral every morning, Pharmacy: [facility] [Not filled] Capt Shakira Saucedo MD Traffic And Transport Planner P GY-3 [facility] [place] [facility] [place], [place] Staffed By: Darek the above note has been dictated partially or in totality with the assistance of Canvace dictation software. While it was proofread for errors, there may still be grammatical and dictation errors. Addendum by SUKHJINDER HOPE DO on August 06, 2024 10:58:22 HEALTHCARE SOCIAL WORKER I certify that I was present for case discussion in the Family Medicine preceptor room at the time of this encounter. I have reviewed the note and agree with the findings, assessment, and plan except as I have documented below. Follow up as listed. All labs/imaging/consults to be followed by the ordering provider. DO Faraz Cox [facility] Family Medicine-Obstetrics Physician Brielle juarez Family Medicine [...] provider. Document Revised: 04/21/2022 Document Reviewed: 04/21/2022 [employer] Interactive Patient Education 2023 [employer] Shopping Cart Software. Preventive Health Heart Disease Prevention Heart disease [...] of hard liquor (44 mL). Medicines Take ppsi-lok-nsznjmu and prescription medicines only as told by [...] Centers for Disease Control and Prevention: www.cdc.gov/heartdisease [place] [employer]: www.heart.org Summary Heart disease is [...] provider. Document Revised: 04/06/2022 Document Reviewed: 04/06/2022 [employer] Patient Education 2023 [employer] Shopping Cart Software. Procedures How to Take Your Blood Pressure [...] Follow these instructions at home: Medicines Take utmt-wtw-inieqmk and prescription medicines only as told by [...] buy a blood pressure monitor at most [employer] or online. Where to find more information [place] [employer]: www.heart.org Contact a health care [...] provider. Document Revised: 04/21/2022 Document Reviewed: 04/21/2022 [employer] Patient Education 2023 [employer] Inc. Extracted from:Title: Family Medicine - COVID resolving (Virtual) Author: AMANDA ARANDA DO Date: 09/07/23 1. C OVID-19 Acute. Resolving. Pt advised that she can expect COVID to resolve similarly to other viral URIs and that she is currently within the expected range of time to be having lingering symptoms. Pt was advised to RTC or seek care at [facility] if symptoms do not improve in one week. Pt agreed with the plan and had no further questions. Amanda Aranda, DO, [place], [place], Traffic And Transport Planner [address] [place], [place] [employer] Addendum by CLARKE RIVAS MD on September 08, 2023 08:59:30 HEALTHCARE SOCIAL WORKER I certify that I was present for case discussion in the Family Medicine preceptor room at the time of this encounter. I have reviewed the note and agree with the findings, assessment, and plan except as I have documented below. Follow up as listed. All labs/imaging/consults to be followed by the ordering provider. Clarke Rivas MD, C apt, [facility] Faculty Attending Family Medicine and Obstetrics Extracted [...] Maintenance, 1 tab(s) Oral every week, Pharmacy: [facility] [Not filled] hydroCHLOROthiazide(hydroCHLOROthia zide 25 mg oral tablet), 1 tab(s), Oral, Daily, # 90 tab(s), 3 total refill(s), Maintenance, 1 tab(s) Oral Daily, Pharmacy: [facility] [Not filled] lisinopril(lisinopril 20 mg oral tablet), 1 tab(s), Oral, Daily, # 90 tab(s), 3 total refill(s), Maintenance, 1 tab(s) Oral Daily, Pharmacy: [facility] [Not filled] simvastatin(simvastatin 20 mg oral tablet), 1 tab(s), Oral, every evening, # 90 tab(s), 3 total refill(s), Maintenance, 1 tab(s) Oral every evening, Pharmacy: [facility] [Not filled] Lincoln Perkins, (), [facility] Traffic And Transport Planner, PGY-1 [employer] Addendum by TAYLOR DORSEY MD on August 29, 2023 08:43:40 HEALTHCARE SOCIAL WORKER I certify that I was present for [...] 08/02/24Basic Metabolic Panel 08/02/24Lipid Panel 08/02/24 11/23/2024 [id number] [facility] Assessment and Plan Extracted from:Title : [...] bpm Plan: CTM Baldo Luque DO, [facility] Resident Provider Addendum by CLARKE RIVAS MD [...] by the ordering provider. Clarke Rivas MD, [facility], [facility], Family Medicine and Obstetrics Faculty Physician [address] [place] [address], HCOS/SG O [facility] BERNARDO Whitten Extracted from:Title: FM: BP [...] 1 tab(s) Oral Daily,Instr:for blood pressure, Pharmacy: [facility] [Federal Rx: #90 last [...] Maintenance, 1 tab(s) Oral every week, Pharmacy: [facility] [Not filled] simvastatin(simvastatin 20 mg oral tablet), 1 tab(s), Oral, every morning, # 90 tab(s), 3 total refill(s), Maintenance, 1 tab(s) Oral every morning, Pharmacy: [facility] [Not filled] Capt Shakira Saucedo MD Traffic And Transport Planner [place] [facility] [place] [facility] [employer], [place] Staffed By: Darek the above note has been dictated partially or in totality with the assistance of Canvace dictation software. While it was proofread for errors, there may still be grammatical and dictation errors. Addendum by SUKHJINDER HOPE DO on August 06, 2024 10:58:22 HEALTHCARE SOCIAL WORKER I certify that I was present for [...] provider. Document Revised: 04/21/2022 Document Reviewed: 04/21/2022 [employer] Patient Education 2023 [employer] Preventive Health Heart Disease Prevention Heart [...] of hard liquor (44 mL). Medicines Take ytss-tdz-brommhi and prescription medicines only as told by [...] Centers for Disease Control and Prevention: www.cdc.gov/heartdisease [place] [employer]: www.heart.org Summary Heart disease is [...] provider. Document Revised: 04/06/2022 Document Reviewed: 04/06/2022 [employer] Patient Education 2023 [employer] Procedures How to Take Your Blood [...] Follow these instructions at home: Medicines Take vzth-ahg-defeyhc and prescription medicines only as told by [...] buy a blood pressure monitor at most [employer] or online. Where to find more information [place] [employer]: www.heart.org Contact a health care [...] Document Reviewed: 04/21/2022 Elsevier Patient Education 2023 [employer]. Extracted from:Title: Family Medicine - COVID resolving (Virtual) Author: AMANDA ARANDA DO Date: 09/07/23 1. C OVID-19 Acute. Resolving. Pt advised that she can expect COVID to resolve similarly to other viral URIs and that she is currently within the expected range of time to be having lingering symptoms. Pt was advised to RTC or seek care at [facility] if symptoms do not improve in one week. Pt agreed with the plan and had no further questions. Amanda Aranda DO, [employer], [employer], Traffic And Transport Planner [employer], [employer] Addendum by CLARKE RIVAS MD on September 08, 2023 08:59:30 HEALTHCARE SOCIAL WORKER I certify that I was present for case discussion in the Family Medicine preceptor room at the time of this encounter. I have reviewed the note and agree with the findings, assessment, and plan except as I have documented below. Follow up as listed. All labs/imaging/consults to be followed by the ordering provider. Clarke Rivas MD, C apt, [facility] Faculty Attending Family Medicine and Obstetrics Extracted [...] Maintenance, 1 tab(s) Oral every week, Pharmacy: [facility] [Not filled] hydroCHLOROthiazide(hydroCHLOROthia zide 25 mg oral tablet), 1 tab(s), Oral, Daily, # 90 tab(s), 3 total refill(s), Maintenance, 1 tab(s) Oral Daily, Pharmacy: [facility] [Not filled] lisinopril(lisinopril 20 mg oral tablet), 1 tab(s), Oral, Daily, # 90 tab(s), 3 total refill(s), Maintenance, 1 tab(s) Oral Daily, Pharmacy: [facility] [Not filled] simvastatin(simvastatin 20 mg oral tablet), 1 tab(s), Oral, every evening, # 90 tab(s), 3 total refill(s), Maintenance, 1 tab(s) Oral every evening, Pharmacy: [facility] [Not filled] Capt Irish (), [facility] Traffic And Transport Planner, PGY-1 [employer] Addendum by TAYLOR DORSEY MD on August 29, 2023 08:43:40 HEALTHCARE SOCIAL WORKER I certify that I was present for [...] of Defense and Veterans Affairs (VA).VA Functional Willits Measurement (FIM) Scale: 1 = Total Assistance (Subject = 0% +), 2 = Maximal Assistance (Subject = 25% +), 3 = Moderate Assistance (Subject = 50% +), 4 = Minimal Assistance (Subject = 75% +), 5 = Supervision, 6 = Modified Willits (Device), 7 = Complete Willits (Timely, Safely). Assessment Date/Time Source Assessment Type Assessment Skill Assessment Score Assessment Details No data available for this section
--- OUTSIDE RECORDS SUMMARY | 2024-11-23 13:34 | XMS_ITS | Clinical Summary ---
Author Organization [facility] Address [address] [place] [id number] Care Team Providers Care Sail Finisher Machine Name Role Phone Willem Mccray MD Primary [...] age to complete this topic Care Teams Sail Finisher Machine Relationship Specialty Start Date End Date Willem Mccray MD PCP - General 01/17/15
[2024-11-23 14:10] LABS: Influenza A QL RT-PCR Negative (Negative); Influenza B QL RT-PCR Negative (Negative); RSV RNA, RT-PCR Negative (Negative); SARS-CoV-2 RNA PCR Negative (Negative)
--- NOTE | 2024-11-23 14:28 | PC.NURSE ---
This RN and warehousing technician unable to obtain labs that don't hemolyze. FARZANA Persaud to bedside to attempt. FARZANA Persaud unsuccessful. Roland with vascular access to bedside.
[2024-11-23 14:52] LABS: Basophils Absolute Auto 0.1 K/mm3 (0.0-0.1); Basophils Percent Auto 0.4 % (0.2-1.2); Eosinophils Absolute Auto 0.1 K/mm3 (0-0.3); Eosinophils Percent Auto 0.5 % (0-4.4); Hematocrit 40.2 % (37.0-47.0); Hemoglobin 12.8 g/dL (12.0-15.0); Immature Granulocyte Absolute 0.09 K/mm3 (0.00-0.031); Immature Granulocyte Percent A 0.5 % (0-0.5); Lymphocytes Absolute Auto 1.67 K/mm3 (0.9-3.2); Lymphocytes Percent Auto 9.9 % (18.3-44.2); Mean Corpuscular HGB Conc 31.8 g/dl (32-36); Mean Corpuscular Hemoglobin 27.5 pg (26-34); Mean Corpuscular Volume 86.5 fl (80-100); Mean Platelet Volume 9.3 fl (7.4-10.4); Monocytes Absolute Auto 0.9 K/mm3 (0.1-0.6); Monocytes Percent Auto 5.3 % (2.6-8.5); Neutrophils Absolute Auto 14.1 K/mm3 (1.3-6.7); Neutrophils Percent Auto 83.4 % (45.5-73.1); Platelet Count Result 309 k/mm3 (150-375); Red Blood Count 4.65 M/mm3 (4.2-5.4); Red Cell Distribution Width 12.8 % (11.5-14.5); White Blood Count 16.9 K/mm3 (4.5-10.0)
[2024-11-23 15:04] LABS: Alanine Aminotransferase 17 U/L (6-35); Albumin Level 4.2 g/dL (3.5-5.1); Alkaline Phosphatase 81 U/L (38-126); Anion Gap 8 mmol/L (4-12); Aspartate Amino Transferase 24 U/L (14-36); Bilirubin,Total 0.4 mg/dL (0.2-1.3); Blood Urea Nitrogen 22 mg/dL (7-17); Calcium 9.9 mg/dL (8.4-10.2); Carbon Dioxide 30 mmol/L (22-30); Chloride 103 mmol/L (98-107); Estimated CRCL calculation 71 ml/min; Estimated Glomerular Filt Rate > 60; Glucose 121 mg/dL (65-110); Sodium 141 mmol/L (137-145)
--- NOTE | 2024-11-23 15:44 | ED_ITS ---
HPI - General Adult General Chief complaint: Upper Respiratory Infection Stated complaint: cough,congestion Time Seen by Provider: 11/23/24 13:12 Source: patient Mode of arrival: ambulatory Limitations: no limitations History of Present Illness HPI narrative: 69-year-old with a history of hypertension with a complains is been ongoing for past 1 week, for past few days she states that cough is now productive in nature mostly mucoid in nature had low-grade fever. Denies any shortness of breath. No previous history of COPD or asthma. Onset (ago): week(s) (1) Severity: mild Exacerbating factors: none Associated symptoms: denies other symptoms Related Data Allergies Allergy/AdvReac Type Severity Reaction Status Date / Time mario Allergy Hives Verified 11/23/24 12:44 Review of Systems 2 Review of Systems: All systems reviewed & are unremarkable except as noted in HPI and below Constitutional: Constitutional: Reports no additional constitutional complaints Eyes: Eyes: Reports no additional eye complaints ENT: Reports system reviewed and no additional complaints, except as documented Cardiovascular: Cardiovascular: Reports no additional cardiovascular complaints Respiratory: Respiratory: Reports as per HPI Gastrointestinal: Gastrointestinal: Reports no additional gastrointestinal complaints Musculoskeletal: Musculoskeletal: Reports no additional musculoskeletal complaints Integumentary/Breasts: Skin/Breast: Reports system reviewed and no additional complaints, except as docu Neurologic: Reports system reviewed and no additional complaints, except as documented Exam 2 Narrative: GENERAL: Well-appearing, well-nourished, and in no acute distress. HEAD: Normocephalic, atraumatic. EYES: PERRLA and EOMI. ENT: Nares clear, no rhinorrhea or epistaxis. Mucous membranes moist. NECK: Supple. CHEST: Clear to auscultation. No respiratory distress. HEART: Regular rate and rhythm. No murmur heard. Normal peripheral pulses. ABDOMEN: Soft, nontender, nondistended, normal active bowel sounds. EXTREMITIES: Normal range of motion. No edema. SKIN: Warm, dry, no rash. NEURO: No focal deficits. Alert and oriented x3. PSYCH: Normal mood and affect. Course Course Emergency Course: Notified patient about our x-ray and lab work. Advised her to take antibiotic as prescribed. Vital Signs Vital signs: Vital Signs Temperature 36.4 C L 11/23/24 12:46 Pulse Rate 115 H 11/23/24 12:46 Respiratory Rate 20 11/23/24 12:46 Blood Pressure 153/61 H 11/23/24 12:46 Pulse Oximetry 98 11/23/24 12:46 Oxygen Delivery Room Air 11/23/24 12:46 Temperature 36.4 C L 11/23/24 12:46 Pulse Rate 115 H 11/23/24 12:46 Respiratory Rate 20 11/23/24 12:46 Blood Pressure 153/61 H 11/23/24 12:46 Pulse Oximetry 98 11/23/24 12:46 Oxygen Delivery Room Air 11/23/24 13:05 Medical Decision Making Differential Diagnosis Differential Diagnosis: URI, bronchitis, pneumonia Vital Signs Vital Signs: Vital Signs Temperature 36.4 C L 11/23/24 12:46 Pulse Rate 115 H 11/23/24 12:46 Respiratory Rate 20 11/23/24 12:46 Blood Pressure 153/61 H 11/23/24 12:46 Pulse Oximetry 98 11/23/24 12:46 Oxygen Delivery Room Air 11/23/24 12:46 Temperature 36.4 C L 11/23/24 12:46 Pulse Rate 115 H 11/23/24 12:46 Respiratory Rate 20 11/23/24 12:46 Blood Pressure 153/61 H 11/23/24 12:46 Pulse Oximetry 98 11/23/24 12:46 Oxygen Delivery Room Air 11/23/24 13:05 Lab Data 11/23/24 14:45 11/23/24 14:45 Labs: Lab Results 11/23/24 11/23/24 Range/Units 13:28 14:45 WBC 16.9 H (4.5-10.0) K/mm3 RBC 4.65 (4.2-5.4) M/mm3 Hgb 12.8 (12.0-15.0) g/dL Hct 40.2 (37.0-47.0) % MCV 86.5 (80-100) fl MCH 27.5 (26-34) pg MCHC 31.8 L (32-36) g/dl RDW 12.8 (11.5-14.5) % Plt Count 309 (150-375) k/mm3 MPV 9.3 (7.4-10.4) fl Immature Gran % (Auto) 0.5 (0-0.5) % Neut % (Auto) 83.4 H (45.5-73.1) % Lymph % (Auto) 9.9 L (18.3-44.2) % Beckham % (Auto) 5.3 (2.6-8.5) % Eos % (Auto) 0.5 (0-4.4) % Baso % (Auto) 0.4 (0.2-1.2) % Lymph # (Auto) 1.67 (0.9-3.2) K/mm3 Beckham # (Auto) 0.9 H (0.1-0.6) K/mm3 Eos # (Auto) 0.1 (0-0.3) K/mm3 Baso # (Auto) 0.1 (0.0-0.1) K/mm3 Abs Immat Gran (auto) 0.09 H (0.00-0.031) K/mm3 Absolute Neuts (auto) 14.1 H (1.3-6.7) K/mm3 Absolute Nucleated RBC 0.000 (0.0-0.012) K/mm3 Nucleated RBC % 0.0 (0.0-0.2) % Sodium 141 (137-145) mmol/L Potassium 4.0 (3.4-5.0) mmol/L Chloride 103 (98-107) mmol/L Carbon Dioxide 30 (22-30) mmol/L Anion Gap 8 (4-12) mmol/L BUN 22 H (7-17) mg/dL Creatinine 0.83 (0.7-1.0) mg/dL Estim Creat Clear Calc 71 ml/min Estimated GFR > 60 (59 - ) Glucose 121 H (65-110) mg/dL Calcium 9.9 (8.4-10.2) mg/dL Total Bilirubin 0.4 (0.2-1.3) mg/dL AST 24 (14-36) U/L ALT 17 (6-35) U/L Alkaline Phosphatase 81 (38-126) U/L Total Protein 8.0 (6.3-8.2) g/dL Albumin 4.2 (3.5-5.1) g/dL Influenza A (RT-PCR) Negative (Negative) Influenza B (RT-PCR) Negative (Negative) RSV (RT-PCR) Negative (Negative) SARS-CoV-2 RNA (RT-PCR) Negative (Negative) Imaging Data Radiologist's impression: ITS Impressions Chest X-Ray 11/23/24 15:34 IMPRESSION: Subsegmental right basilar atelectasis/consolidation. Discharge Plan Discharge Clinical Impression: Pneumonia Qualifiers: Pneumonia type: due to unspecified organism Laterality: right Lung location: u nspecified part of lung Qualified Code(s): J18.9 - Pneumonia, unspecified organism Patient Disposition: Home, Self-Care Condition: Stable Instructions: Pneumonia (ED) Additional Instructions: Take antibiotic as prescribed, follow-up with your primary doctor Patient Language: Occitan Prescriptions: New doxycycline hyclate 100 mg tablet 100 mg PO DAILY Qty: 7 0RF Follow-up/Referrals: Pooja Randle MD [Physician] - UNKNOWN,DOCTOR [Primary Care Provider] - Time of Disposition: 15:50
== END 2024-11-23 16:02 | disposition home or self-care (01) ==
PROVIDERS: Emergency Provider Family Medicine
DX: J18.9 Pneumonia, unspecified organism (principal); Z20.822 Contact with and (suspected) exposure to COVID-19
CPT/HCPCS: 36415; 71046; 80053; 85025; 87637; 93005; 99284